=== PATIENT | male | born 1960 | race Two or more races ===

== ENCOUNTER → 2020-10-16 10:42 | Outpatient (BNVA) | payer MEDICAID, SELFPAY | PROVIDERS: PCP Nurse Practitioner Family; Referring Provider Nurse Practitioner Family; Visit Provider Surgery | DX: Z12.11 Encounter for screening for malignant neoplasm of colon (principal) | CPT/HCPCS: 99202 ==

== ENCOUNTER 2020-12-01 06:28 | Day surgery (SDC) | payer MEDICAID, SELFPAY ==
[2020-11-27 09:43] VITALS: BMI 30.8
[2020-11-30 08:06] VITALS: BMI 30.8
--- NOTE | 2020-11-30 10:27 | P.CONAN_ITS ---
Documented by User: Kacy Hernandez 11/30/20 10:33 HPI - Anesthesia Eval Consult details Narrative: 60yo M for Colonoscopy PMFSH Past Medical History Medical History Asthma Colon cancer screening Hyperlipidemia TIA (transient ischemic attack) Family History Family History Mother History of diabetes mellitus Brother History of diabetes mellitus Father History of myocardial infarction Surgical History Surgical History History of ankle surgery (2008) History of cholecystectomy (1997) History of colonoscopy (~2008) History of prostate surgery Social History Social History Alcohol intake: current Alcohol intake frequency: holidays/special occasions only Alcohol type: beer Smoking Status: Never smoker Second Hand Smoke Exposure: No Use of substances other than those prescribed or required for medical reasons: No Substance Use Type: IV Drugs Last Used Substance: Unknown Advance Directives: No Advance Directives Information Provided: No Advance Directives on File: No Meds Allergies Allergy/AdvReac Type Severity Reaction Status Date / Time simvastatin Allergy Mild elevated Verified 12/01/20 06:42 CPK Home Medications Medication Instructions Recorded Confirmed Type acetaminophen 500 mg capsule 1,000 mg PO TID PRN cap 10/16/20 History albuterol sulfate 2.5 mg INHALATION Q4-6H PRN 10/16/20 History albuterol sulfate 90 mcg/actuation 2 puff INHALATION Q6H PRN 10/16/20 History aerosol inhaler amlodipine 10 mg tablet 10 mg PO DAILY 10/16/20 History aspirin 325 mg tablet,delayed 325 mg PO DAILY 10/16/20 History release atorvastatin 80 mg tablet 80 mg PO BEDTIME 10/16/20 History blood pressure test kit medium and #1 ea 10/16/20 History large cuffs calcium carbonate 300 mg (750 mg) 300 mg PO BID 10/16/20 History chewable tablet cholecalciferol (vitamin D3) 50 50 mcg PO DAILY 10/16/20 History mcg (2,000 unit) capsule cyclobenzaprine 5 mg tablet 5 mg PO TID PRN 10/16/20 History fluticasone 250 mcg-salmeterol 50 1 inh INHALATION BID 10/16/20 History mcg/dose blistr powdr for inhalation ibuprofen 800 mg tablet 800 mg PO TID 10/16/20 History loratadine 10 mg tablet 10 mg PO DAILY 10/16/20 History mecobalamin (vitamin B12) 1,000 1,000 mcg SUBLINGUAL DAILY 10/16/20 History mcg disintegrating tablet,sublingual quetiapine 100 mg tablet 100 mg PO BEDTIME 10/16/20 History sennosides 8.6 mg tablet 8.6 mg PO DAILY 10/16/20 History varicella-zoster glycoE vacc-AS01B IM 10/16/20 History adj(PF) 50 mcg/0.5 mL IM susp, kit venlafaxine 75 mg capsule,extended 75 mg PO DAILY 10/16/20 History release 24 hr zaleplon 10 mg capsule 10 mg PO BEDTIME PRN 10/16/20 History Exam Exam Date and Time: November 30, 2020 1027 Height,Weight and Vital Signs: Height 5 ft 3 in Weight 79 kg Narrative Narrative: EKG 01/2020 NSR Assessment and Plan Assessment Anesthesia Assessment: Chart Reviewed Documented by User: Leelee Abdi 12/01/20 07:21 [facility] Past Medical History Medical History Asthma Colon cancer screening Hyperlipidemia TIA (transient ischemic attack) Family History Family History Mother History of diabetes mellitus Brother History of diabetes mellitus Father History of myocardial infarction Surgical History Surgical History History of ankle surgery (2008) History of cholecystectomy (1997) History of colonoscopy (~2008) History of prostate surgery Social History Social History Alcohol intake: current Alcohol intake frequency: holidays/special occasions only Alcohol type: beer Smoking Status: Never smoker Second Hand Smoke Exposure: No Use of substances other than those prescribed or required for medical reasons: No Substance Use Type: IV Drugs Last Used Substance: Unknown Advance Directives: No Advance Directives Information Provided: No Advance Directives on File: No Meds Allergies Allergy/AdvReac Type Severity Reaction Status Date / Time simvastatin Allergy Mild elevated Verified 12/01/20 06:42 CPK Home Medications Medication Instructions Recorded Confirmed Type acetaminophen 500 mg capsule 1,000 mg PO TID PRN cap 10/16/20 History albuterol sulfate 2.5 mg INHALATION Q4-6H PRN 10/16/20 History albuterol sulfate 90 mcg/actuation 2 puff INHALATION Q6H PRN 10/16/20 History aerosol inhaler amlodipine 10 mg tablet 10 mg PO DAILY 10/16/20 History aspirin 325 mg tablet,delayed 325 mg PO DAILY 10/16/20 History release atorvastatin 80 mg tablet 80 mg PO BEDTIME 10/16/20 History blood pressure test kit medium and #1 ea 10/16/20 History large cuffs calcium carbonate 300 mg (750 mg) 300 mg PO BID 10/16/20 History chewable tablet cholecalciferol (vitamin D3) 50 50 mcg PO DAILY 10/16/20 History mcg (2,000 unit) capsule cyclobenzaprine 5 mg tablet 5 mg PO TID PRN 10/16/20 History fluticasone 250 mcg-salmeterol 50 1 inh INHALATION BID 10/16/20 History mcg/dose blistr powdr for inhalation ibuprofen 800 mg tablet 800 mg PO TID 10/16/20 History loratadine 10 mg tablet 10 mg PO DAILY 10/16/20 History mecobalamin (vitamin B12) 1,000 1,000 mcg SUBLINGUAL DAILY 10/16/20 History mcg disintegrating tablet,sublingual quetiapine 100 mg tablet 100 mg PO BEDTIME 10/16/20 History sennosides 8.6 mg tablet 8.6 mg PO DAILY 10/16/20 History varicella-zoster glycoE vacc-AS01B IM 10/16/20 History adj(PF) 50 mcg/0.5 mL IM susp, kit venlafaxine 75 mg capsule,extended 75 mg PO DAILY 10/16/20 History release 24 hr zaleplon 10 mg capsule 10 mg PO BEDTIME PRN 10/16/20 History Exam Airway Mallampati Class: II TM Dist: >3cm Neck ROM: Full Heart: RRR Lungs: CTa
[2020-12-01 06:48] VITALS: BP 137/78; PULSE 754; RESP 16; TEMP 36.6; O2SAT 96
[2020-12-01] MEDS: Lactated Ringers 1,000 ML 100 ML IVCONT (07:03)
--- NOTE | 2020-12-01 07:19 | MHC.SHP ---
Pre-Procedural Eval Section B Chief Complaint: screening Details of Present Illness: for screening colonoscopy Relevant Family History (Specify if Yes): No Relevant Social History: None Present Medications: see Short Stay Collaborative assessment Medical History: No relevant PMH History of Previous Operations: No relevant previous surgery Allergies: Allergies Allergy/AdvReac Type Severity Reaction Status Date / Time simvastatin Allergy Mild elevated Verified 12/01/20 06:42 CPK Review of Systems Sugical H&P ROS: Negative: Constitution, Cardiovascular, Respiratory, Neurological, Psychiatric, Hem-Onc, Allergic/Immunologic, Gastrointestinal, Genitourinary, Musculoskeletal, Integumentary, Endocrine and Eyes/Ears/Nose/Throat Exam Surgical H&P Exam: Normal: HEENT, Normal: Heart, Normal: Lungs, Normal: Extremities, Normal: Abdomen, Normal: Skin and Normal: Neurological Plan Diagnosis/Plan: Unchanged I have reviewed the history and physical and performed a pertinent physical examination on my patient. No changes have occurred unless specified.
--- NOTE | 2020-12-01 08:04 | PM.OP ---
Brief Operative Note Date of Service: 12/01/20 Pre-op diagnosis: colon ca screen Post-op diagnosis: other (diverticulosis, hemorrhoids) Procedure: colonoscopy Surgeon: Mehul Lovett MD Anesthesia: MAC Estimated blood loss (mL): 0 Pathology: none sent Condition: stable Disposition: PACU
[2020-12-01 08:05] VITALS: BP 109/63; PULSE 82; RESP 16; TEMP 36.7; O2SAT 95
--- NOTE | 2020-12-01 08:08 | HO.POSTANES ---
Post Anesthesia Evaluation Post Anesthesia Evaluation Vital Signs: Vital Signs Temp Pulse Resp BP Pulse Ox 12/01/20 08:05 98.0 F 82 16 109/63 95 12/01/20 06:48 97.9 F 754 H 16 137/78 96 Anesthesia: Monitored Mental Status: Awake Pain Control: Satisfactory Nausea/Vomiting: None Hydration: Adequate Anesthesia-Related Issues: No Anes. Related Issues
[2020-12-01 08:20] VITALS: BP 122/83; PULSE 76; RESP 17; TEMP 36.7; O2SAT 95
--- NOTE | 2020-12-01 08:27 | OP_ITS ---
SURGEON: Mehul Lovett MD INDICATIONS: The patient is a 60-year-old male, who is referred for screening colonoscopy. He understood the technique of the procedure. He was aware of the risks, benefits, and alternatives. PREOPERATIVE DIAGNOSIS: Colon cancer screening. POSTOPERATIVE DIAGNOSIS: Normal colonoscopy findings PROCEDURE PERFORMED: Screening colonoscopy. ESTIMATED BLOOD LOSS: COMPLICATIONS: ANESTHESIA: ASSISTANTS: SPECIMENS: POSTOPERATIVE DIAGNOSES: 1. Diverticulosis, mostly in the sigmoid. 2. Internal and external hemorrhoids. DESCRIPTION OF PROCEDURE: He was brought to the operating room and placed in left lateral decubitus position under monitored anesthesia care. A full digital rectal exam was done. There were no palpable anal canal lesions, except for hemorrhoids. The tip of the Olympus colonoscope was introduced gently through the anal orifice and advanced with insufflation all the way to the cecum. The cecum was intubated. The cecum was identified by visualization of the cecal valve as well as the appendiceal orifice and transillumination. The cecal mucosa was unremarkable. The scope was gradually withdrawn with careful examination of the entire colonic mucosa being done with scope withdrawal. The patient did have some segments with pools of thin-watered stools, so I had to irrigate and suction, but we were able to achieve good visualization of the colonic mucosa. It was unlikely that any lesion might have been missed. We proceeded to continue to withdraw the scope with careful examination and there was note of diverticulosis of the sigmoid, [id number]. The rectum was reached and there were no lesions seen. The anal canal was unremarkable except for internal and external hemorrhoids and the scope was then withdrawn completely. The patient tolerated the procedure well and there were no complications noted. His next colonoscopy may be in the next 10 years. MD BYRON Jewell/TIMOTHY / [id number] MTDD
--- NOTE | 2020-12-01 08:53 | HO.POSTANES ---
Post Anesthesia Evaluation Post Anesthesia Evaluation Vital Signs: Vital Signs Temp Pulse Resp BP Pulse Ox 12/01/20 08:20 98.0 F 76 17 122/83 95 12/01/20 08:05 98.0 F 82 16 109/63 95 12/01/20 06:48 97.9 F 754 H 16 137/78 96 Anesthesia: Monitored Mental Status: Awake Pain Control: Satisfactory Nausea/Vomiting: None Hydration: Adequate Anesthesia-Related Issues: No Anes. Related Issues
== END 2020-12-01 08:47 ==
LOC: HO.SSS 06:28
PROVIDERS: PCP Nurse Practitioner Family; Visit Provider Surgery
PROC: 0DJD8ZZ Inspection of Lower Intestinal Tract, Via Natural or Artificial Opening Endoscopic (ICD-10-PCS; CPT 45378; principal; 2020-12-01 07:30)
DX: Z12.11 Encounter for screening for malignant neoplasm of colon (principal); K57.30 Diverticulosis of large intestine without perforation or abscess without bleeding; K64.8 Other hemorrhoids; K64.4 Residual hemorrhoidal skin tags; K59.00 Constipation, unspecified; E87.4 Mixed disorder of acid-base balance; Z86.73 Personal history of transient ischemic attack (TIA), and cerebral infarction without residual deficits; Z90.49 Acquired absence of other specified parts of digestive tract
CPT/HCPCS: 45378

== ENCOUNTER → 2020-12-28 14:36 | Outpatient (BNVA) | payer MEDICAID, SELFPAY | PROVIDERS: PCP Nurse Practitioner Family; Visit Provider Surgery | DX: Z12.11 Encounter for screening for malignant neoplasm of colon (principal) | CPT/HCPCS: 99212 ==

== ENCOUNTER → 2021-02-01 10:56 | Outpatient (BNVA) | payer MEDICAID, SELFPAY | PROVIDERS: PCP Nurse Practitioner; Visit Provider Urology | DX: N48.6 Induration penis plastica (principal) | CPT/HCPCS: 99202 ==

== ENCOUNTER 2023-03-14 10:37 | Outpatient (REF) | payer MEDICAID, SELFPAY ==
--- NOTE | ~2023-03-14 | XR_ITS ---
EXAMINATION: XR ANKLE, LEFT CLINICAL INFORMATION: Left ankle pain. COMPARISON: None available. TECHNIQUE: AP, lateral, and mortise views of the left ankle. FINDINGS: The patient is status post left ankle ORIF with an intramedullary nail transfixing the tibiotalar and subtalar joints with associated effusion. Overall good anatomic alignment without overt acute fracture. The soft tissues are unremarkable. XR/XR ankle LT min 3V IMPRESSION: 1. Overall good anatomic alignment without overt acute fracture. 2. No overt hardware abnormality.
== END 2023-03-14 10:38 | disposition home or self-care (01) ==
LOC: HO.HHCX 10:37
PROVIDERS: Referring Provider Nurse Practitioner Primary Care; Visit Provider Nurse Practitioner Primary Care
DX: M25.572 Pain in left ankle and joints of left foot (principal)
CPT/HCPCS: 73610

== ENCOUNTER 2023-07-02 18:57 | Outpatient (REF) | payer MEDICAID, SELFPAY ==
[2023-07-03 06:28] LABS: CT PCR NOT DETECTED (Not Detect.); NG PCR NOT DETECTED (Not Detect.)
== END 2023-07-02 18:58 | disposition home or self-care (01) ==
LOC: HO.HHCL 18:57
PROVIDERS: Visit Provider Internal Medicine
DX: R30.0 Dysuria (principal); N34.2 Other urethritis
CPT/HCPCS: 0353U; 87086; 87088; 87186

== ENCOUNTER 2023-07-17 17:35 | Outpatient (REF) | payer MEDICAID, SELFPAY ==
[2023-07-17 18:00] LABS: Appearance Urine Turbid; Color Urine Yellow; Glucose Urine UA Negative (Negative); Leukocyte Esterase Urine Large (3+) (Negative); Nitrite Urine Positive (Negative); PH 6.5 (5.0-9.0); UMIC TRIGGER UACC YES; Urine Blood Moderate (2+) (Negative); Urine Ketones Trace mg/dL (Negative); Urine Protein 30 (1+) mg/dL (Neg-Trace)
[2023-07-17 18:14] LABS: Bacteria Urine 4+ (None Seen); UACC Culture Trigger YES; WBC Urine >50 /HPF (0-5)
== END 2023-07-17 17:36 | disposition home or self-care (01) ==
LOC: HO.HHCLNP 17:35
PROVIDERS: Visit Provider Family Medicine
DX: R30.0 Dysuria (principal)
CPT/HCPCS: 81001; 87086; 87088; 87186

== ENCOUNTER 2024-02-26 07:22 | Emergency (ER) | payer MEDICAID, SELFPAY ==
--- NOTE | 2024-02-26 | ECG_ITS ---
Test Reason : SOB Blood Pressure : / mmHG Vent. Rate : 095 BPM Atrial Rate : 095 BPM P-R Int : 134 ms QRS Dur : 084 ms QT Int : 346 ms P-R-T Axes : 034 013 075 degrees QTc Int : 434 ms Normal sinus rhythm Normal ECG When compared with ECG of 28-JAN-2020 22:25, No significant change was found Referred By: Generic ED Physician Electronically Signed By:RAJESH BRAUN
--- NOTE | ~2024-02-26 | XR_ITS ---
EXAMINATION: XR CHEST CLINICAL INFORMATION: Dyspnea COMPARISON: 01/28/2020 TECHNIQUE: Frontal view of the chest was obtained. FINDINGS: No significant abnormality is noted involving the heart, lungs, mediastinum, bony thorax or soft tissues. XR/XR chest 1V IMPRESSION: Unremarkable examination.
[2024-02-26 07:23] VITALS: BP 140/76; PULSE 92; RESP 18; TEMP 37.2; O2SAT 95; BMI 32.3
[2024-02-26] MEDS: Albuterol Sulfate 90 MCG 8 GM INHALER 8 PUFF INHALE (07:48)
[2024-02-26 07:54] VITALS: PULSE 97; RESP 20; O2SAT 95
--- NOTE | 2024-02-26 08:01 | ED_ITS ---
HPI - Asthma General Chief Complaint: Dyspnea Stated Complaint: diff breathing couthing Time Seen by Provider: 02/26/24 07:52 Source: patient, family and old records reviewed Mode of arrival: ambulatory Limitations: no limitations History of Present Illness HPI Narrative: 63 yo male with PMH of TIA, HLD, asthma, HTN here with c/o flu exposure from multiple family members has been sick x 2 days with cough, wheezing, fevers and nausea. Using his INH with no relief. MD complaint: asthma attack , shortness of breath and wheezing Onset (ago): day(s) (2) Severity: moderate Context: recent URI Associated symptoms: dry cough and fever Asthma History: childhood onset Treatments Prior to Arrival: inhaled bronchodilator Related Data Home Medications ?Medication ?Instructions ?Recorded ?Confirmed acetaminophen 500 mg capsule 1,000 mg PO TID PRN 10/16/20 07/21/21 albuterol sulfate 2.5 mg/3 mL 2.5 mg inhalation Q4-6H PRN 10/16/20 07/21/21 (0.083 %) solution for nebulization albuterol sulfate 90 mcg/actuation 2 puff inhalation Q6H PRN 10/16/20 07/21/21 aerosol inhaler (ProAir HFA) amlodipine 10 mg tablet 10 mg PO DAILY 10/16/20 07/21/21 aspirin 325 mg tablet,delayed 325 mg PO DAILY 10/16/20 07/21/21 release atorvastatin 80 mg tablet 80 mg PO BEDTIME 10/16/20 07/21/21 blood pressure test kit medium and #1 ea 10/16/20 07/21/21 large cuffs calcium carbonate 300 mg (750 mg) 300 mg PO BID 10/16/20 07/21/21 chewable tablet (Tums) cholecalciferol (vitamin D3) 50 50 mcg PO DAILY 10/16/20 07/21/21 mcg (2,000 unit) capsule cyclobenzaprine 5 mg tablet 5 mg PO TID PRN 10/16/20 07/21/21 fluticasone 250 mcg-salmeterol 50 1 inh inhalation BID 10/16/20 07/21/21 mcg/dose blistr powdr for inhalation (Advair Diskus) ibuprofen 800 mg tablet 800 mg PO TID 10/16/20 07/21/21 loratadine 10 mg tablet 10 mg PO DAILY 10/16/20 07/21/21 mecobalamin (vitamin B12) 1,000 1,000 mcg sublingual DAILY 10/16/20 07/21/21 mcg disintegrating tablet,sublingual quetiapine 100 mg tablet (Seroquel) 100 mg PO BEDTIME 10/16/20 07/21/21 sennosides 8.6 mg tablet (senna) 8.6 mg PO DAILY 10/16/20 07/21/21 varicella-zoster glycoE vacc-AS01B IM 10/16/20 07/21/21 adj(PF) 50 mcg/0.5 mL IM susp, kit (Shingrix (PF)) venlafaxine 75 mg capsule,extended 75 mg PO DAILY 10/16/20 07/21/21 release 24 hr zaleplon 10 mg capsule 10 mg PO BEDTIME PRN 10/16/20 07/21/21 Previous Rx's ?Medication ?Instructions ?Recorded sodium,potassium,mag sulfates 17.5 See Rx Instructions PO .COMPLEX 10/16/20 gram-3.13 gram-1.6 gram oral soln PLEASE SUBSTITUTE WITH FORMULARY (Suprep Bowel Prep Kit) PRODUCT #354 mL peg 3350-electrolytes 227.1 240 ml PO Q10M for bowel prep #1 ea 11/28/20 gram-21.5 gram-6.36gram oral powder packet (Golytely) tadalafil 10 mg tablet 10 mg PO DAILY PRN sexual activity 02/01/21 90 days #90 tabs amoxicillin 500 mg capsule 500 mg PO Q12H 7 days #14 caps 07/21/21 ondansetron 4 mg disintegrating 4 mg PO Q8H PRN nausea and 02/26/24 tablet vomiting #20 tabs oseltamivir 75 mg capsule (Tamiflu) 75 mg PO BID 5 days #10 caps 02/26/24 prednisone 20 mg tablet 40 mg (2 x 20 mg) PO DAILY 5 days 02/26/24 #10 tabs Allergies Allergy/AdvReac Type Severity Reaction Status Date / Time simvastatin Allergy Mild elevated Verified 02/26/24 07:31 CPK Review of Systems 2 Review of Systems: Constitutional : pos Fever, pos Chills ENT/Mouth : No Hoarseness, No sore throat, No Rhinorrhea Eyes: No Redness, No Discharge, No Vision Changes Cardiovascular : No Chest Pain, positive SOB, positive Dyspnea on Exertion, No Edema Respiratory : positive Cough, No Sputum, positive Wheezing, Gastrointestinal : pos Nausea, No Vomiting, No Diarrhea, No abdominal Pain Genitourinary : No Dysuria, No Hematuria Musculoskeletal : No joint pain, No Myalgias Skin : No rash Neuro : No Weakness, No Numbness, No Headache Psych : No anxiety, depression All other systems reviewed and are negative PMFSH Past Medical History Attestation statement: The following information was validated with the patient. Source: old records reviewed Medical History TIA (transient ischemic attack) Asthma Colon cancer screening Hyperlipidemia Surgical History History of prostate surgery History of colonoscopy (~2008) History of ankle surgery (2008) History of cholecystectomy (1997) Family History Family History Mother History of diabetes mellitus Brother History of diabetes mellitus Father History of myocardial infarction Social History Social History Alcohol intake: current Alcohol intake frequency: holidays/special occasions only Alcohol type: beer Second Hand Smoke Exposure: No Substance Use Type: IV Drugs Advance Directives: No Advance Directives Information Provided: Yes Physical Exam 2 Vital Signs: Vital Signs: Last Vital Signs Temp 98.6 F 02/26/24 08:31 Pulse 96 02/26/24 08:31 Resp 20 02/26/24 08:31 BP 145/75 H 02/26/24 08:31 Pulse Ox 92 02/26/24 08:31 O2 Del Method Room Air 02/26/24 08:31 BMI result Body Mass Index 32.3 Appearance: Alert. Oriented X3. No acute distress. Eyes: Pupils equal, round and reactive to light. ENT: Pharynx normal. Neck: Normal inspection. Neck supple. CVS: Normal heart rate and rhythm. Pulses normal. Respiratory: No respiratory distress. Breath sounds diminished with mild exp wheezes Abdomen: Soft and nontender. Skin: Skin warm and dry. Normal skin color. Normal skin turgor. Extremities: No lower extremity edema. No calf ttp Neuro: Oriented X 3. No motor deficit. No sensory deficit. Medications Administered Discontinued Medications Generic Name Dose Route Start Last Admin Trade Name Audelia PRN Reason Stop Dose Admin Albuterol Sulfate 8 puff 02/26/24 07:45 02/26/24 07:48 Albuterol Sulfate 90 Mcg 8 Gm Inhaler INHALE 02/26/24 07:46 8 puff ONCE ONE Administration Sodium Chloride 1,000 mls @ 999 mls/hr 02/26/24 08:15 02/26/24 09:44 Ns IV 02/26/24 09:15 Infused .Q1H1M GREG Infusion Methylprednisolone Sodium Succinate 60 mg 02/26/24 08:02 02/26/24 08:50 Methylprednisolone Sod Succ 125 Mg/2 Ml Vial IVPUSH 02/26/24 08:03 60 mg ONCE ONE Administration Ondansetron HCl 4 mg 02/26/24 08:02 02/26/24 08:50 Ondansetron Hcl 4 Mg/2 Ml Vial IVPUSH 02/26/24 08:03 4 mg ONCE ONE Administration Medical Decision Making Medical Decision Making [facility] Narrative: 63 yo male with PMH of TIA, HLD, asthma, HTN here with c/o flu exposure now sick with fevers, nausea, wheezing for 2 days at this time will need labs, bronch protocol, IV fluids, zofran he is in window for tamiflu. I am obtaining CXR as well. He is not hypoxic on arrival. Differential Diagnosis Differential Diagnoses: The differential diagnosis associated with the presentation includes asthma, flu exacerbation Admission/Observation Consideration of admission/observation: Escalation of care including admission/observation considered VS stable, lungs clear feels much better at this time stable for DC 95% on RA Lab Data [facility] Lab Attestation statement: I reviewed the patient's lab results. 02/26/24 08:23 02/26/24 08:39 Labs: Lab Results 02/26/24 02/26/24 Range/Units 08:23 08:39 WBC 7.1 (4.8-10.8) X10*3/uL RBC 3.88 L (4.60-5.80) X10*6/uL Hgb 11.9 L (14.0-18.0) g/dl Hct 36.0 L (42.0-52.0) % MCV 92.8 (80.0-98.0) fL MCH 30.7 (27.0-33.0) pg MCHC 33.1 (31.0-36.0) g/dl RDW 14.0 (11.0-16.0) % Plt Count 273 (160-400) X10*3/uL MPV 9.9 (9.4-12.4) fL Immature Gran % (Auto) 0.3 (0.0-0.4) % Neut % (Auto) 71.0 (45-73) % Lymph % (Auto) 14.0 L (20-40) % [place] % (Auto) 12.8 H (2-11) % Eos % (Auto) 1.6 (0-4) % Baso % (Auto) 0.3 (0-2) % Lymph # (Auto) 1.0 L (1.2-4.9) X10*3/uL [place] # (Auto) 0.9 (0.1-1.2) X10*3/uL Eos # (Auto) 0.1 (0.0-0.4) X10*3/uL Baso # (Auto) 0.0 (0.0-0.2) X10*3/uL Abs Immat Gran (auto) 0.02 (0.00-0.03) X10*3/uL Absolute Neuts (auto) 5.0 (2.0-8.3) x10*3/uL Absolute Nucleated RBC 0.000 (0.0-0.012) X10*3/uL Nucleated RBC % (auto) 0.0 (0.0-0.2) /100WBC Smear Tech's Comments VERIFIED Sodium 139 (135-145) mmol/L Potassium 4.1 (3.3-5.1) mmol/L Chloride 106 (96-108) mmol/L Carbon Dioxide 25 (22-29) mmol/L Anion Gap 12 (12-20) BUN 14 (9-16) mg/dL Creatinine 1.05 (0.5-1.4) mg/dL Estim Creat Clear Calc 74.9 Estimated GFR > 60 Random Glucose 112 (60-115) mg/dL Calcium 9.1 (8.4-10.2) mg/dL Magnesium 2.2 (1.6-2.6) mg/dL Total Bilirubin 0.4 (0.0-1.0) mg/dL AST 43 H (5-37) U/L ALT 35 (0-40) U/L Alkaline Phosphatase 102 (39-117) U/L Total Protein 8.1 H (6.5-8.0) g/dL Albumin 4.3 (3.5-5.0) g/dL Influenza Type A (PCR) POSITIVE A (Negative) Influenza Type B (PCR) NEGATIVE (Negative) RSV RNA Qual (PCR) NEGATIVE (Negative) SARS-CoV-2 RNA (RT-PCR) NEGATIVE (Negative) Independent Interpretation I performed an independent interpretation of an: EKG and Plain X-Ray (no pneumonia) Interpretation: Rate: 95 Rhythm: NSR [place]: normal Normal P waves. Normal RADU. Normal QRS complex. ST T wave : normal no GWEN qTC: 434 prior studies: no acute ischemia The study has been interpreted contemporaneously by me. . Radiology Impression Discussion of test interpretation with radiology: I have reviewed the radiologist's reading. Independent Historian Clinical information obtained from an independent historian. History obtained from or confirmed by: Spouse External Record Review External record reviewed: Inpatient record Prescription Management I considered prescription management with: Antiviral and Other Discharge Plan Discharge Clinical Impression: Influenza A Asthma with exacerbation Qualifiers: Asthma severity: moderate Asthma persistence: persistent Qualified Code(s): J 45.41 - Moderate persistent asthma with (acute) exacerbation Patient Disposition: Home, Self-Care Instructions: Asthma (ED), Influenza (ED) Additional Instructions: return for worsening symptoms and concerns take the medications as prescribed. return for fevers, vomiting, inability to eat or drink or worsening breathing Prescriptions: New oseltamivir [Tamiflu] 75 mg capsule 75 mg PO BID 5 Days Qty: 10 0RF ondansetron 4 mg tablet,disintegrating 4 mg PO Q8H PRN (Reason: nausea and vomiting) Qty: 20 0RF prednisone 20 mg tablet 40 mg PO DAILY 5 Days Qty: 10 0RF No Action Golytely 227.1-21.5-6.36 gram powder in packet 240 ml PO Q10M Qty: 1 0RF Rx Instructions: Begin drinking 1 8oz glass every 10 minutes until fecal effluent is clear; do not exceed a total volume [id number] mL amoxicillin 500 mg capsule 500 mg PO Q12H 7 Days Qty: 14 0RF venlafaxine 75 mg capsule,extended release 24hr 75 mg PO DAILY zaleplon 10 mg capsule 10 mg PO BEDTIME PRN Rx Instructions: must avoid high-fat meal/food immediately before taking dose acetaminophen 500 mg capsule 1,000 mg PO TID PRN albuterol sulfate 2.5 mg /3 mL (0.083 %) solution for nebulization 2.5 mg inhalation Q4-6H PRN quetiapine [Seroquel] 100 mg tablet 100 mg PO BEDTIME fluticasone propion-salmeterol [Advair Diskus] 250-50 mcg/dose blister with device 1 inh inhalation BID Shingrix (PF) 50 mcg/0.5 mL suspension for reconstitution IM sennosides [senna] 8.6 mg tablet 8.6 mg PO DAILY atorvastatin 80 mg tablet 80 mg PO BEDTIME aspirin 325 mg tablet,delayed release (DR/EC) 325 mg PO DAILY mecobalamin (vitamin B12) 1,000 mcg tablet,disintegrating 1,000 mcg sublingual DAILY Rx Instructions: place tablet under tongue and allow to dissolve for at least30 secs before swallowing cholecalciferol (vitamin D3) 50 mcg (2,000 unit) capsule 50 mcg PO DAILY loratadine 10 mg tablet 10 mg PO DAILY calcium carbonate [Tums] 300 mg (750 mg) tablet,chewable 300 mg PO BID (DME) blood pressure kit med and lrg Kit See Rx Instructions .ROUTE .MEDSUPPLY Qty: 1 Rx Instructions: As directed ibuprofen 800 mg tablet 800 mg PO TID amlodipine 10 mg tablet 10 mg PO DAILY albuterol sulfate [ProAir HFA] 90 mcg/actuation HFA aerosol inhaler 2 puff inhalation Q6H PRN cyclobenzaprine 5 mg tablet 5 mg PO TID PRN Suprep Bowel Prep Kit 17.5-3.13-1.6 gram recon soln See Rx Instructions PO .COMPLEX Qty: 354 0RF Rx Instructions: DILUTE; drink full amount early evening before AND next morning at least 2 hr before procedure; follow w 32 oz. water PO tadalafil 10 mg tablet 10 mg PO DAILY PRN (Reason: sexual activity) 90 Days Qty: 90 0RF Print Language: Eritrean
[2024-02-26 08:31] VITALS: BP 145/75; PULSE 96; RESP 20; TEMP 37; O2SAT 92
[2024-02-26 08:31] LABS: Basophils Percent Auto 0.3 % (0-2); Eosinophils Absolute Auto 0.1 X10*3/uL (0.0-0.4); Eosinophils Percent Auto 1.6 % (0-4); Hemoglobin 11.9 g/dl (14.0-18.0); Imm Gran Abs Auto 0.02 X10*3/uL (0.00-0.03); Imm Gran Pct Auto 0.3 % (0.0-0.4); MANUAL DIFF FLAG SCAN; Mean Corpuscular HGB Conc 33.1 g/dl (31.0-36.0); Mean Corpuscular Hemoglobin 30.7 pg (27.0-33.0); Mean Corpuscular Volume 92.8 fL (80.0-98.0); Monocytes Absolute Auto 0.9 X10*3/uL (0.1-1.2); Monocytes Percent Auto 12.8 % (2-11); PLT CLUMP 1; Red Blood Count 3.88 X10*6/uL (4.60-5.80); SCAN SMEAR FLAG 1
[2024-02-26 08:34] LABS: White Blood Count 7.1 X10*3/uL (4.8-10.8)
[2024-02-26] MEDS: 0.9 % Sodium Chloride 1,000 ML 999 ML IV (08:48)
[2024-02-26] MEDS: ondansetron HCL 4 MG/2 ML VIAL IVPUSH (08:50)
[2024-02-26] MEDS: methylPREDNISolone Sod Succ 125 MG/2 ML VIAL 60 MG IVPUSH (08:50)
[2024-02-26 09:02] LABS: Alanine Aminotransferase 35 U/L (0-40); Albumin Level 4.3 g/dL (3.5-5.0); Alkaline Phosphatase 102 U/L (39-117); Anion Gap 12 (12-20); Aspartate Amino Transferase 43 U/L (5-37); Bilirubin Total 0.4 mg/dL (0.0-1.0); Blood Urea Nitrogen 14 mg/dL (9-16); Calcium 9.1 mg/dL (8.4-10.2); Carbon Dioxide 25 mmol/L (22-29); Chloride 106 mmol/L (96-108); Creatinine Clr Calc Pharmacy 74.9; Estimated Glomerular Filt Rate > 60; Glucose Random 112 mg/dL (60-115); Magnesium 2.2 mg/dL (1.6-2.6); Potassium 4.1 mmol/L (3.3-5.1); Sodium 139 mmol/L (135-145); Total Protein 8.1 g/dL (6.5-8.0)
[2024-02-26 09:25] LABS: Mean Platelet Volume 9.9 fL (9.4-12.4); Platelet Count 273 X10*3/uL (160-400); SLIDE REVIEW VERIFIED
[2024-02-26 09:26] LABS: Influenza A PCR POSITIVE (Negative); Influenza B PCR NEGATIVE (Negative); Resp Syncy Virus RNA Qual PCR NEGATIVE (Negative); SARS COV2 PCR INHOUSE NEGATIVE (Negative)
[2024-02-26 11:03] VITALS: BP 121/76; PULSE 78; RESP 14; TEMP 36.6; O2SAT 95
== END 2024-02-26 11:04 | disposition home or self-care (01) ==
PROVIDERS: Emergency Provider Emergency Medicine; PCP Nurse Practitioner
DX: J45.41 Moderate persistent asthma with (acute) exacerbation (principal); J10.1 Influenza due to other identified influenza virus with other respiratory manifestations; I10 Essential (primary) hypertension; Z86.73 Personal history of transient ischemic attack (TIA), and cerebral infarction without residual deficits
CPT/HCPCS: 0241U; 36415; 71045; 80053; 83735; 85025; 93005; 94640; 96361; 96374; 96375; 99284; J2405; J2919

== ENCOUNTER → 2024-02-26 08:22 | Outpatient (BNV) | payer MEDICAID, SELFPAY | PROVIDERS: Emergency Provider Emergency Medicine; PCP Nurse Practitioner; Visit Provider Internal Medicine | DX: R06.02 Shortness of breath (principal) | CPT/HCPCS: 93010 ==

== ENCOUNTER 2024-04-30 15:04 | Outpatient (AMB) | payer MEDICAID, SELFPAY ==
--- NOTE | 2024-04-30 15:07 | A.OFFVIS_ITS ---
Intake Visit Reasons: Dysuria/Recurrent UTI Intake Note: Pt presents to the office today for dysuria/Reccurent UTI Urology Meds: Tadalafil Blood Thinner: Aspirin Allergies simvastatin Allergy (Mild, Verified 04/30/24 15:07) elevated CPK HPI Comments Details: Zane is a pleasant male. He is a patient of Dr. Hanna. He has seen for the following urologic conditions - erectile dysfunction - Peyronie's disease Discussed penile prosthetic Printed information provided He will call if wishes to move ahead Peyronie's disease Longstanding No pain Right ventral plaque on exam Has interest in penile prosthetic Failed daily Cialis Would also need to use penile vacuum pump for 3 months prior to prosthetic placement in order to maximize size PFSH Medical History TIA (transient ischemic attack) Asthma Colon cancer screening Hyperlipidemia Surgical History History of prostate surgery History of colonoscopy (~2008) History of ankle surgery (2008) History of cholecystectomy (1997) Family History Mother History of diabetes mellitus Brother History of diabetes mellitus Father History of myocardial infarction Social History Alcohol intake: current Alcohol intake frequency: holidays/special occasions only Alcohol type: beer Second Hand Smoke Exposure: No Substance Use Type: IV Drugs Review of Systems Const Denies chills and Denies fever(s) Card Reports no additional complaints and Denies syncope Resp Denies cough GI Denies abdominal pain and Denies heartburn Reports as per HPI and Denies change in libido Neuro Denies syncope Psych Denies change in libido Endo Denies change in libido Physical Exam Const General: cooperative, healthy appearing, comfortable and no acute distress Orientation/consciousness: patient oriented x3 HEENT Face and sinus: Yes normal facial exam Mouth: moist mucous membranes Neck Neck: Yes normal visual inspection, Yes full ROM and Yes trachea midline Chest Chest palpation & inspection: normal inspection of the chest Resp Effort & Inspection: normal respiratory effort, able to speak in complete sentences and no respiratory distress GI Inspection: Yes normal to inspection Back/Spine/Pelvis Cervical Spine: normal cervical lordosis Thoracic/Lumbar Spine: thoracic and lumbar spine normal to inspection Skin General skin exam: no rashes or lesions noted Neuro General: patient oriented x3, gait normal, tone normal and moves all extremities Extrem General: Yes normal to inspection and Yes capillary refill normal Office Procedures Post Void Residual Post Residual Void Post Void Residual (PVR): 51 [id number] Void Residual by ultrasound Results AMB Urinalysis, Automated UA Leukoctes 0 Isabel/uL Last Edit by Priti Kwok CMA on 04/30/24 15:19 UA Nitrite Negative Last Edit by Priti Kwok CMA on 04/30/24 15:19 UA Urobilinogen 0.2 mg/dL Last Edit by Priti Kwok CMA on 04/30/24 15:19 UA Protein 15 mg/dL Last Edit by Priti Kwok CMA on 04/30/24 15:19 UA pH 5.5 Last Edit by Priti Kwok CMA on 04/30/24 15:19 UA Blood 0 Jameson/uL Last Edit by Priti Kwok CMA on 04/30/24 15:19 UA Specific [place] 1.020 Last Edit by Priti Kwok CMA on 04/30/24 15:19 UA Ketone Positive Last Edit by Priti Kwok CMA on 04/30/24 15:19 UA Bilirubin 1 mg/dL Last Edit by Priti Kwok CMA on 04/30/24 15:19 UA Glucose 0 mg/dL Last Edit by Priti Kwok CMA on 04/30/24 15:19 Results Reviewed Results Reviewed: Laboratory Last Values Urine pH (Auto) 5.5 04/30/24 15:18 Specific [place] (Auto) 1.020 04/30/24 15:18 Urine Protein (Auto) 15 mg/dL 04/30/24 15:18 Glucose (UA)(Auto) 0 mg/dL 04/30/24 15:18 Urine Ketones (Auto) Positive 04/30/24 15:18 Urine Blood (Auto) 0 Jameson/uL 04/30/24 15:18 Urine Nitrite (Auto) Negative 04/30/24 15:18 Urine Bilirubin (Auto) 1 mg/dL 04/30/24 15:18 Urine Urobilinogen (Auto) 0.2 mg/dL 04/30/24 15:18 Leukocyte Esterase (Auto) 0 Isabel/uL 04/30/24 15:18 Assessment & Plan Assessment & Plan (1) Peyronie's disease: Code(s): N48.6 - Induration penis plastica Category: Medical (2) Erectile dysfunction: Code(s): N52.9 - Male erectile dysfunction, unspecified Category: Medical Plan P.r.n. follow-up Orders: Orders AMB Urinalysis Automated Today Z13.9 - Encounter for screening, unspecified AMB Post Void Residual by ultrasound Today R30.0 - Dysuria Patient Instructions: Imaging studies, laboratory and physical exam results were discussed and reviewed in detail. No major barriers to patient understanding were identified. An opportunity to ask questions regarding the treatment plan was provided. All questions were answered. The patient expressed understanding and agreement with the above treatment plan. The patient is aware they should contact our office by phone for worsening of their current condition or the appearance of new urologic symptoms. Compliance is encouraged with any medications and followup testing that is ordered. It is a privilege to participate in the urologic care of your patient. If you have any questions or concerns regarding treatment for the above conditions, or other urologic issues, please do not hesitate to contact me. The office telephone contact is [phone]. This note is constructed using voice recognition software. While every effort has been made to ensure accuracy saddle cutter errors may have been included. Yours sincerely, Dr Bc Mccollum MD, [facility] - Urology Providers of Expert, Compassionate Care for the Genitourinary System Coding Level of Care Code Est Pt Level 3 (81260) Diagnoses Peyronie's disease N48.6 Erectile dysfunction N52.9 CPT Codes Post Residual Void - PVR CPT Code: 83876-Ldan Void Residual by ultrasound ([id number])
== END 2024-04-30 15:34 | disposition home or self-care (01) ==
PROVIDERS: PCP Nurse Practitioner; Referring Provider Nurse Practitioner; Visit Provider Urology
DX: N48.6 Induration penis plastica (principal); N52.9 Male erectile dysfunction, unspecified; Z13.9 Encounter for screening, unspecified
CPT/HCPCS: 99213

== ENCOUNTER → 2024-04-30 15:04 | Outpatient (BNVA) | payer MEDICAID, SELFPAY | PROVIDERS: PCP Nurse Practitioner; Visit Provider Urology | DX: N48.6 Induration penis plastica (principal); N52.9 Male erectile dysfunction, unspecified | CPT/HCPCS: 51798; 81003; 99212 ==

== ENCOUNTER 2024-05-27 09:29 | Outpatient (REF) | payer MEDICAID, SELFPAY ==
--- NOTE | ~2024-05-27 | XR_ITS ---
EXAMINATION: XR CHEST CLINICAL INFORMATION: Upper extremity edema. History of coronary artery disease. COMPARISON: None available. TECHNIQUE: 2 views of the chest were obtained. FINDINGS: Lungs are well-inflated and clear. Trachea is midline in position. No interstitial disease, consolidation or mass. No pleural effusion or pneumothorax. Cardiac silhouette and pulmonary vessels are normal in size. The mediastinum and yovani have normal contour. No acute osseous abnormality. Surgical clips are seen in the upper abdomen. XR/XR chest 2V IMPRESSION: Lungs have a normal appearance. No acute cardiopulmonary abnormality.
== END 2024-05-27 09:30 | disposition home or self-care (01) ==
LOC: HO.HHCX 09:29
PROVIDERS: Visit Provider Family Medicine
DX: R60.9 Edema, unspecified (principal)
CPT/HCPCS: 36415; 71046; 80053; 85025

== ENCOUNTER 2024-05-27 10:38 | Outpatient (REF) | payer MEDICAID, SELFPAY ==
[2024-05-27 11:20] LABS: MANUAL DIFF FLAG NO
[2024-05-27 11:28] LABS: Basophils Percent Auto 0.5 % (0-2); Eosinophils Absolute Auto 0.3 X10*3/uL (0.0-0.4); Hematocrit 37.3 % (42.0-52.0); Hemoglobin 12.4 g/dl (14.0-18.0); Imm Gran Abs Auto 0.03 X10*3/uL (0.00-0.03); Imm Gran Pct Auto 0.5 % (0.0-0.4); Lymphocytes Absolute Auto 1.6 X10*3/uL (1.2-4.9); Mean Corpuscular HGB Conc 33.2 g/dl (31.0-36.0); Mean Corpuscular Hemoglobin 30.8 pg (27.0-33.0); Mean Corpuscular Volume 92.6 fL (80.0-98.0); Mean Platelet Volume 9.7 fL (9.4-12.4); Monocytes Absolute Auto 0.7 X10*3/uL (0.1-1.2); Monocytes Percent Auto 12.6 % (2-11); Neutrophils Absolute Auto 3.1 x10*3/uL (2.0-8.3); Neutrophils Percent Auto 53.4 % (45-73); Platelet Count 327 X10*3/uL (160-400); Red Blood Count 4.03 X10*6/uL (4.60-5.80); Red Cell Distribution Width 13.8 % (11.0-16.0); White Blood Count 5.8 X10*3/uL (4.8-10.8)
[2024-05-27 11:58] LABS: Alanine Aminotransferase 30 U/L (0-40); Albumin Level 4.2 g/dL (3.5-5.0); Alkaline Phosphatase 90 U/L (39-117); Anion Gap 14 (12-20); Aspartate Amino Transferase 28 U/L (5-37); Bilirubin Total 0.4 mg/dL (0.0-1.0); Blood Urea Nitrogen 13 mg/dL (9-16); Calcium 9.5 mg/dL (8.4-10.2); Carbon Dioxide 27 mmol/L (22-29); Chloride 103 mmol/L (96-108); Estimated Glomerular Filt Rate > 60; Glucose Random 121 mg/dL (60-115); Potassium 4.2 mmol/L (3.3-5.1); Sodium 140 mmol/L (135-145)
== END 2024-05-27 10:39 | disposition home or self-care (01) ==
LOC: HO.HHCL 10:38
PROVIDERS: Visit Provider Family Medicine
DX: Z13.89 Encounter for screening for other disorder (principal)
CPT/HCPCS: 36415; 80053; 85025

== ENCOUNTER 2024-06-24 15:06 | Outpatient (AMB) | payer MEDICARE, MEDICAID, SELFPAY ==
--- NOTE | 2024-06-24 15:26 | MHC.OFFVIS ---
Intake Visit Reasons: H&P Penile prosthetic with remodeling Intake Note: Patient is present for H&P Penile Prosthetic with Remodeling Urology Med: Tadalafil Blood Thinners: Aspirin, Plavix Allergies simvastatin Allergy (Mild, Verified 06/03/24 13:09) elevated CPK HPI Comments Details: Zane is a pleasant male. He is a patient of Dr. Hanna. He has seen for the following urologic conditions - erectile dysfunction - Peyronie's disease He would like to move ahead with penile prosthetic Procedure scheduled Discussed pre and postoperative care including use of catheter and dressing Plan for prosthetic placement with Peyronie's remodeling Peyronie's disease Longstanding No pain Right ventral plaque on exam Has interest in penile prosthetic Failed daily Cialis Would also need to use penile vacuum pump for 3 months prior to prosthetic placement in order to maximize size PFSH Medical History (Updated 07/01/24 @ 13:36 by Talia Winkler RN) CAD (coronary artery disease) Pre-diabetes TIA (transient ischemic attack) Asthma Colon cancer screening Hyperlipidemia Surgical History (Updated 07/01/24 @ 13:27 by Talia Winkler RN) History of prostate surgery History of colonoscopy (~2008) History of ankle surgery (2008) History of cholecystectomy (1997) Family History Mother History of diabetes mellitus Brother History of diabetes mellitus Father History of myocardial infarction Social History (System 06/03/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) Alcohol intake: current Alcohol intake frequency: holidays/special occasions only Alcohol type: beer Second Hand Smoke Exposure: No Substance Use Type: IV Drugs Review of Systems Const Denies chills and Denies fever(s) Card Reports no additional complaints and Denies syncope Resp Denies cough GI Denies abdominal pain and Denies heartburn Reports as per HPI and Denies change in libido Neuro Denies syncope Psych Denies change in libido Endo Denies change in libido Physical Exam Const General: cooperative, healthy appearing, comfortable and no acute distress Orientation/consciousness: patient oriented x3 HEENT Face and sinus: Yes normal facial exam Mouth: moist mucous membranes Neck Neck: Yes normal visual inspection, Yes full ROM and Yes trachea midline Chest Chest palpation & inspection: normal inspection of the chest Resp Effort & Inspection: normal respiratory effort, able to speak in complete sentences and no respiratory distress GI Inspection: Yes normal to inspection Back/Spine/Pelvis Cervical Spine: normal cervical lordosis Thoracic/Lumbar Spine: thoracic and lumbar spine normal to inspection Skin General skin exam: no rashes or lesions noted Neuro General: patient oriented x3, gait normal, tone normal and moves all extremities Extrem General: Yes normal to inspection and Yes capillary refill normal Telehealth Telehealth Location of provider rendering services: practice address Location of patient: address on file Patient Identification confirmed using: Name, : Yes Telehealth method: voice only Patient verbally consented to treatment: Yes Patient verbally consented to billing insurance company: Yes Patient informed of any privacy concerns related to visit: Yes Assessment & Plan Assessment & Plan (1) Erectile dysfunction: Code(s): N52.9 - Male erectile dysfunction, unspecified Category: Medical (2) Peyronie's disease: Code(s): N48.6 - Induration penis plastica Category: Medical Plan Risks, benefits and alternatives to therapy were discussed. These include but are not limited to infection, bleeding, damage to local organs and tissues, need for further interventions. Anesthetic risks regarding cardiac arrhythmia, blood clots, and potential mortality were discussed. The patient understands the typical recovery time and the outpatient nature of the procedure. After consideration of these risks the patient gives full informed consent and they wish to move ahead with the procedure. Risks include perforation of urethra, posterior corporal perforation, infection. Patient Instructions: Imaging studies, laboratory and physical exam results were discussed and reviewed in detail. No major barriers to patient understanding were identified. An opportunity to ask questions regarding the treatment plan was provided. All questions were answered. The patient expressed understanding and agreement with the above treatment plan. The patient is aware they should contact our office by phone for worsening of their current condition or the appearance of new urologic symptoms. Compliance is encouraged with any medications and followup testing that is ordered. It is a privilege to participate in the urologic care of your patient. If you have any questions or concerns regarding treatment for the above conditions, or other urologic issues, please do not hesitate to contact me. The office telephone contact is [phone]. This note is constructed using voice recognition software. While every effort has been made to ensure accuracy physician executive errors may have been included. Yours sincerely, Dr Bc Mccollum MD, [facility] - Urology Providers of Expert, Compassionate Care for the Genitourinary System Coding Level of Care Code Est Pt Level 4 (17591) Diagnoses Erectile dysfunction N52.9 Peyronie's disease N48.6
== END 2024-06-24 16:30 | disposition home or self-care (01) ==
LOC: HO.HUSH 15:06
PROVIDERS: PCP Nurse Practitioner; Visit Provider Urology
DX: N52.9 Male erectile dysfunction, unspecified (principal); N48.6 Induration penis plastica
CPT/HCPCS: 99214

== ENCOUNTER → 2024-06-24 15:06 | Outpatient (BNVA) | payer MEDICARE, MEDICAID, SELFPAY | PROVIDERS: PCP Nurse Practitioner; Visit Provider Urology | DX: N52.9 Male erectile dysfunction, unspecified (principal); N48.6 Induration penis plastica | CPT/HCPCS: 99212 ==

== ENCOUNTER 2024-07-05 05:54 | Day surgery (SDC) | payer MEDICARE, MEDICAID, SELFPAY ==
[2024-07-01 13:38] VITALS: BMI 34.0
[2024-07-05] VITALS (11 sets, daily range): BP systolic 104–143; BP diastolic 68–84; PULSE 79–94; RESP 14–16; TEMP 36.3–36.6; O2SAT 94–97; BMI 32.2
[2024-07-05] MEDS: Lactated Ringers 1,000 ML 80 ML IVCONT (06:51)
--- NOTE | 2024-07-05 07:25 | P.OP_ITS ---
Operative Note Operative Note Date of Service: 07/05/24 Narrative: PreOperative Diagnosis: Erectile dysfunction with Peyronies Post Operative Diagnosis: Erectile dysfunction with Peyronies Procedure: Placement of inflatable penile prosthetic with remodelling Surgeon: Dr Bc Mccollum Anesthesia: General Indications for procedure: Progressive erectile dysfunction in setting of diabetes Non responsive to oral or injectable medications. Maximum doses have been trialled. Is aware of the risks and benefits particularly related to mechanical failure, infection, loss of sensation. Procedure: After informed consent was verified the patient was brought to the operating room and placed in a supine position. Anesthesia was administered per protocol. The patient was shaved with clippers, and prepped with cholhexidine based solution. He was draped in a sterile fashion. Safety pause time-out performed. Since he is a diabetic he was given triple coverage with IV vancomycin, Pip-Tazo and fluconazole per modified guideline. 14 Haitian Grimm catheter was placed on the field. Bladder was drained. [place] retractor with penile support was placed. Local anesthetic infiltrated horizontally 1.5cm proximal from the penoscrotal junction. Dorsal nerve block was placed inferior to the symphsis pubis in the midline and perineal/crural block was placed 1 fingerbreadth lateral to the midline angled at 45 degrees. The penis was placed in a cephalad position using the glans hook on the [place]. A horizontal scrotal incision was made at the penoscrotal junction and taken down to the tunica. Dissection was performed 1st on the left side and then on the right side to fully expose the proximal tunica of the corpora. Midline dissection was required to lift off the median attachments. At this point stay hooks were placed in a star shaped pattern. A double row of 3-0 Vicryl stay sutures were placed through the proximal corporal tunica with 1cm spacing and labeled and marked bilaterally. Colored vicryl was placed medial and plain vicryl lateral. Blue towels were used to isolate left from right. The same procedure was performed first on the left and then on the right side. The next step was an incision was made between the 2 rows of stay sutures through the tunica using a 15 Blade. This was approximately 2.5 cm in length. The left was completed and then the right side. 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 The stay hooks were removed from the [place]. The penile support was removed. Hegar dilators were used in stepwise increasing size to dilate the corporal bodies in a proximal and distal fashion until it could accept a 13 Hegar dilator. Care was taken to reach the sacrum on the posterior dilation and the mid-glans position on the distal dilation. Dilation was performed on the left- hand side followed by the right-hand side. Once complete the 12 Hegar dilator was placed up the left distal corporal body and the 13 Hegar dilator placed up the right distal corporal body. Neither dilator touched each other demonstrating cross over had not occurred. After dilation each corporal body were washed with antibiotic normal saline. At this point the huber measuring device was introduced. On the left side the proximal dilation measured at 10 cm and the distal dilation measured approximately 11 cm on the left. On the right side 10 cm and 11 cm respectively. Based on the considerations from dilatation and an assessment of the penile base girth a decision was made regarding penile prosthetic choice. [] Titan Pump - 20cm Batch [id number] [place] Label - 125 cc - [id number] Prior to prosthetic preparation placement of the reservoir was performed. The 100cc concealed reservoir was chosen. Surgical gloves were changed at this point in the procedure prior to handling the prosthetic. The right inguinal canal was palpated and finger dissection plus the blue hook retractor were used to expose the floor of the canal and palpate the medial edge adjacent to the rectur abdominis tendon insertion. A Metzenbaum scissors were used to punch a small hole in the posterior wall of the medial aspect of the inguinal canal. This was enlarged with the tip of the index finger. The concealed reservoir was then placed through this hole into the preperitoneal, retro body wall space. This was filled with 100 cc injectable normal saline and minimal back pressure was noted. Shod clamps were placed. Preparation of the corporal cylinders and integrated pump were complete. Rear tip extenders had been attached. An introducer Howard needle was used to thread the distal tip thread from left side corporal prosthetic. The threaded needle was loaded into the huber device and placed through the corporal defect to the mid glans position. The needle was advanced out through the glans of the penis. The prosthetic was then placed into the corporal defect. The proximal portion, with attached rear tip machine welt butter, was advanced and placed using the enclosed pusher device. Once the proximal portion was properly seated the distal component was introduced and brought out to the distal portion of the corpora by retracting the glans suture. A similar procedure was repeated on the right side. Tubing covering was stripped. The penis was elevated by grasping the distal glans sutures. The prosthetic was then inflated with approximately 80 cc of normal saline. No defects were seen. The prosthetic remained midline and the distal tips could be palpated in the mid penile gland indicating correct placement. The penile prosthetic was deflated. The parallel stay sutures were then secured in a horizontal fashion. The proximal pair of sutures were tied first. The proximal suture ends were tied in an air knot. The distal suture ends were lifted tightening the proximal knot onto tissue and closing the corporotomy. This was repeated with the second pair of distal sutures. The left side was completed first followed by the right. The scrotum was irrigated. Blunt dissection was performed to create a scrotal pocket. The pump was placed into the scrotal pocket and held using a clamp. The excess tubing from the pump and reservoir was isolated using rubber shod clamps. Excess tubing was cut with scissors leaving a 1 inch length. The tubing ends were spiritzed with saline. Compression fittings were placed and locked using the compression clamp. The penile prosthetic was then refilled to ensure proper function and adequate flow between the reservoir and the prosthetic. A 3-0 Vicryl was then used to secure tissue so the pump was kept in the dependent position using a purse string suture Tissue was reapproximated with 3-0 Vicryl in a horizontal fashion. At least 2 layers were created Skin was closed using a running 4.0 monocryl suture. The wounds were cleaned and dried. Dermal glue was used to cover the incision. Once the incision was dry and modified mummy / broccoli stalk dressing was applied. This consisted of a layer of brooke followed by Coban. Two-three pumps had been placed into the prosthetic so as to keep the prosthetic partially filled. A cap was left on the Grimm catheter to allow drainage for the next 48 hours. He tolerated the procedure well was extubated in operating room transferred in stable condition to the recovery area. Drains: 14 Haitian Grimm catheter Pathology: None
--- NOTE | 2024-07-05 07:25 | MHC.SHP ---
Pre-Procedural Eval Section A - 24 Hr Update-Section A only Date of Service: 07/05/24 The patient is an INPATIENT: No Changes since office visit: No Cold of Flu in the past 2 weeks, No New Medical Problems, No Changes in Medication and No Patient answered all questions The patient has been examined within 24 hours of the surgical procedure. The History & Physical has been completed within 30 days and I have reviewed it.: Yes Section B - Complete if H&P > 30 days Chief Complaint: Induration penis plastica Details of Present Illness: Plan for penile prosthetic with remodeling Allergies: Allergies Allergy/AdvReac Type Severity Reaction Status Date / Time simvastatin Allergy Mild elevated Verified 06/03/24 13:09 CPK Plan I have reviewed the history and physical and performed a pertinent physical examination on my patient. No changes have occurred unless specified. Time Spent With Patient Time: Total time managing care of this patient today ____ minutes.
--- NOTE | 2024-07-05 07:26 | P.CONAN_ITS ---
HPI - Anesthesia Eval Consult details Narrative: for insertion penile prosthesis PMFSH Active Problems Active Problems: All Active Problems Erectile dysfunction (Acute) Pharyngitis (Acute) Peyronie's disease (Acute) Colon cancer screening (Acute) Past Medical History Medical History CAD (coronary artery disease) Pre-diabetes TIA (transient ischemic attack) Asthma Colon cancer screening Hyperlipidemia Narrative: Pt tells me that he started having chest pains about two years ago. Underwent what sounds like cardiac cath w two vessels opened/stented. Takes plavix and aspirin. Stopped 1week. No chest pain. 'Cleared' by cardology w 'moderate' risk. Family History Family History Mother History of diabetes mellitus Brother History of diabetes mellitus Father History of myocardial infarction Family history of problems with anesthesia: No Surgical History Surgical History History of prostate surgery History of colonoscopy (~2008) History of ankle surgery (2008) History of cholecystectomy (1997) History of Problems with Anesthesia: No Social History Social History (System 06/03/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) Are you a primary healthcare customer service to a significant other at home: No Do you presently have visiting nurse or other home services: No Alcohol intake: current Alcohol intake frequency: holidays/special occasions only Alcohol type: beer Patient Tobacco Use Status: Never used Tobacco Second Hand Smoke Exposure: No Use of substances other than those prescribed or required for medical reasons: No Substance Use Type: IV Drugs Have you been hit, kicked, punched, or otherwise hurt by someone within the past year? If so, by whom?: No Are you DNR?: No Advance Directives: No Advance Directives Information Provided: Yes Recently lost weight without trying: No Nutrition Risks: No Nutritional Risk Poor oral hygiene: No Meds Allergies Allergy/AdvReac Type Severity Reaction Status Date / Time simvastatin Allergy Mild elevated Verified 06/03/24 13:09 CPK Active Medications: Current Medications Lactated Ringer's (Lr) 1,000 mls @ 80 mls/hr IVCONT .[id number] GREG Last Admin: 07/05/24 06:51 Dose: 80 mls/hr Home Medications ?Medication ?Instructions ?Recorded ?Confirmed ?Last Taken ?Type acetaminophen 500 mg capsule 1,000 mg PO TID PRN Pain 10/16/20 07/05/24 07/04/24 History albuterol sulfate 2.5 mg/3 mL 2.5 mg inhalation Q4-6H PRN 10/16/20 07/05/24 07/04/24 History (0.083 %) solution for nebulization Shortness Of Breath albuterol sulfate 90 mcg/actuation 2 puff inhalation Q6H PRN 10/16/20 07/05/24 07/04/24 History aerosol inhaler (ProAir HFA) Shortness Of Breath amlodipine 10 mg tablet 10 mg PO DAILY 10/16/20 07/05/24 07/04/24 History aspirin 325 mg tablet,delayed 325 mg PO DAILY 10/16/20 07/05/24 06/19/24 History release atorvastatin 80 mg tablet 80 mg PO BEDTIME 10/16/20 07/05/24 07/04/24 History blood pressure test kit medium and #1 ea 10/16/20 07/05/24 07/04/24 History large cuffs cholecalciferol (vitamin D3) 50 50 mcg PO DAILY 10/16/20 07/05/24 07/04/24 History mcg (2,000 unit) capsule cyclobenzaprine 5 mg tablet 5 mg PO TID PRN Muscle Spasm 10/16/20 07/05/24 07/04/24 History fluticasone 250 mcg-salmeterol 50 1 inh inhalation BID 10/16/20 07/05/24 07/04/24 History mcg/dose blistr powdr for inhalation (Advair Diskus) ibuprofen 800 mg tablet 800 mg PO TID 10/16/20 07/05/24 07/04/24 History loratadine 10 mg tablet 10 mg PO DAILY 10/16/20 07/05/24 07/04/24 History mecobalamin (vitamin B12) 1,000 1,000 mcg sublingual DAILY 10/16/20 07/05/24 07/04/24 History mcg disintegrating tablet,sublingual quetiapine 100 mg tablet (Seroquel) 100 mg PO BEDTIME 10/16/20 07/05/24 07/04/24 History venlafaxine 75 mg capsule,extended 75 mg PO DAILY 10/16/20 07/05/24 07/04/24 History release 24 hr zaleplon 10 mg capsule 10 mg PO BEDTIME PRN Insomnia 10/16/20 07/05/24 07/04/24 History clopidogrel 75 mg tablet (Plavix) 75 mg PO DAILY 06/15/24 07/05/24 06/19/24 History metoprolol succinate 25 mg 50 mg PO DAILY 06/15/24 07/05/24 07/04/24 History tablet,extended release 24 hr Exam Height,Weight and Vital Signs: Height 5 ft 3 in Weight 82.554 kg Last Vital Signs Temp 97.3 F 07/05/24 06:52 Pulse 79 07/05/24 06:52 Resp 14 07/05/24 06:52 BP 133/79 07/05/24 06:52 Pulse Ox 97 07/05/24 06:52 O2 Del Method Room Air 07/05/24 06:52 Airway Mallampati Class: II TM Dist: <=3cm Neck ROM: Full Loose/Missing/Broken Teeth: No Heart: see above Lungs: ok Other: Echo 11/27/22 fairly normal, good LV, RV, IVC; all valves OK. Assessment and Plan Assessment Anesthesia Assessment: Anesthesia Plan Discussed and Chart Reviewed Final Anesthetic Review Family History of Problems with Anesthesia: No History of Problems with Anesthesia: No NPO: Yes ASA Class: III Final Preanesthetic Review: No Changes in Pt Med Stat, Meds/Allgs Chart Reviewed, Consent Obtained/Reviewed and Anes Risks/Benef Reviewed Patient Risk: Intermediate Procedure Risk: Low Anesthetic Plan Anesthetic Plan: GA and Agree w/ Assess. and Plan Disposition: Standard PACU
--- NOTE | 2024-07-05 07:50 | PC.NURSE ---
Vanco not done in preop per Dr Dyer. Anesthesia to administer during case.
[2024-07-05] MEDS: fentaNYL citrate/PF 100 MCG/2 ML VIAL 50 MCG IVPUSH ×3 (10:38→10:56)
[2024-07-05] MEDS: oxyCODONE HCl Immed Release 5 MG TABLET PO (11:33)
== END 2024-07-05 11:50 | disposition home or self-care (01) ==
PROVIDERS: Visit Provider Urology
PROC: (CPT 54405; principal; 2024-07-05 07:30)
DX: N48.6 Induration penis plastica (principal); N52.9 Male erectile dysfunction, unspecified; I25.10 Atherosclerotic heart disease of native coronary artery without angina pectoris; I10 Essential (primary) hypertension; J45.909 Unspecified asthma, uncomplicated; E78.5 Hyperlipidemia, unspecified; R73.03 Prediabetes; R07.9 Chest pain, unspecified; Z79.1 Long term (current) use of non-steroidal anti-inflammatories (NSAID); Z79.51 Long term (current) use of inhaled steroids; Z79.82 Long term (current) use of aspirin; Z79.899 Other long term (current) drug therapy; Z98.890 Other specified postprocedural states
CPT/HCPCS: 54405; C1813; J0131; J1450; J1580; J2250; J2543; J2704; J2795; J3010; J3370; J3371

== ENCOUNTER → 2024-07-05 05:54 | Outpatient (BNV) | payer MEDICARE, MEDICAID, SELFPAY | PROVIDERS: Visit Provider Urology | DX: N48.6 Induration penis plastica (principal) | CPT/HCPCS: 54405 ==

== ENCOUNTER → 2024-07-07 09:21 | Outpatient (BNVA) | payer MEDICARE, MEDICAID, SELFPAY | PROVIDERS: PCP Nurse Practitioner; Visit Provider Urology ==

== ENCOUNTER 2024-07-16 10:51 | Outpatient (AMB) | payer MEDICARE, MEDICAID, SELFPAY ==
--- NOTE | 2024-07-16 11:09 | MHC.OFFVIS ---
Intake Visit Reasons: Penile Prosthetic- 2wk follow up Intake Note: Patient is present for Post OP 2 week follow up Penile Prosthetic Urology Med: Tadalafil Antibiotic Allergy:None Blood Thinner: Plavix, Aspirin Aircraft Mechanic Armament Required: No Grounds Maintenance Worker: Grounds Maintenance Worker Present Accompanied by: Spouse Allergies simvastatin Allergy (Mild, Verified 07/16/24 11:11) elevated CPK HPI Comments Details: Zane is a pleasant male. He is a patient of Dr. Hanna. He has seen for the following urologic conditions - erectile dysfunction - Peyronie's disease Two week follow-up penile prosthetic Healing well Prosthetic was inflated and deflated multiple cycles to demonstrate to patient's Instructed to manipulate pump in shower and pulled down into scrotum to prevent retraction Review in 4 weeks Peyronie's disease Longstanding No pain Right ventral plaque on exam Has interest in penile prosthetic Failed daily Cialis 07/03 penile pump placement with remodeling [facility] Medical History CAD (coronary artery disease) Pre-diabetes TIA (transient ischemic attack) Asthma Colon cancer screening Hyperlipidemia Surgical History History of prostate surgery History of colonoscopy (~2008) History of ankle surgery (2008) History of cholecystectomy (1997) Family History Mother History of diabetes mellitus Brother History of diabetes mellitus Father History of myocardial infarction Social History Are you a primary administrator health care facility to a significant other at home: No Do you presently have visiting nurse or other home services: No Alcohol intake: current Alcohol intake frequency: holidays/special occasions only Alcohol type: beer Patient Tobacco Use Status: Never used Tobacco Second Hand Smoke Exposure: No Substance Use Type: IV Drugs Review of Systems Const Denies chills and Denies fever(s) Card Reports no additional complaints and Denies syncope Resp Denies cough GI Denies abdominal pain and Denies heartburn Reports as per HPI and Denies change in libido Neuro Denies syncope Psych Denies change in libido Endo Denies change in libido Physical Exam Const General: cooperative, healthy appearing, comfortable and no acute distress Orientation/consciousness: patient oriented x3 HEENT Face and sinus: Yes normal facial exam Mouth: moist mucous membranes Neck Neck: Yes normal visual inspection, Yes full ROM and Yes trachea midline Chest Chest palpation & inspection: normal inspection of the chest Resp Effort & Inspection: normal respiratory effort, able to speak in complete sentences and no respiratory distress GI Inspection: Yes normal to inspection Back/Spine/Pelvis Cervical Spine: normal cervical lordosis Thoracic/Lumbar Spine: thoracic and lumbar spine normal to inspection Skin General skin exam: no rashes or lesions noted Neuro General: patient oriented x3, gait normal, tone normal and moves all extremities Extrem General: Yes normal to inspection and Yes capillary refill normal Assessment & Plan Assessment & Plan (1) Erectile dysfunction: Code(s): N52.9 - Male erectile dysfunction, unspecified Category: Medical (2) Peyronie's disease: Code(s): N48.6 - Induration penis plastica Category: Medical Plan Four week follow-up Patient Instructions: Imaging studies, laboratory and physical exam results were discussed and reviewed in detail. No major barriers to patient understanding were identified. An opportunity to ask questions regarding the treatment plan was provided. All questions were answered. The patient expressed understanding and agreement with the above treatment plan. The patient is aware they should contact our office by phone for worsening of their current condition or the appearance of new urologic symptoms. Compliance is encouraged with any medications and followup testing that is ordered. It is a privilege to participate in the urologic care of your patient. If you have any questions or concerns regarding treatment for the above conditions, or other urologic issues, please do not hesitate to contact me. The office telephone contact is [phone]. This note is constructed using voice recognition software. While every effort has been made to ensure accuracy dump motor operator errors may have been included. Yours sincerely, Dr Bc Mccollum MD, ROS[facility] - Urology Providers of Expert, Compassionate Care for the Genitourinary System Coding Level of Care Code Global (90416) Diagnoses Erectile dysfunction N52.9 Peyronie's disease N48.6
== END 2024-07-16 11:23 | disposition home or self-care (01) ==
PROVIDERS: PCP Nurse Practitioner; Visit Provider Urology
DX: N52.9 Male erectile dysfunction, unspecified (principal); N48.6 Induration penis plastica
CPT/HCPCS: 99024

== ENCOUNTER → 2024-07-16 10:51 | Outpatient (BNVA) | payer MEDICARE, MEDICAID, SELFPAY | PROVIDERS: PCP Nurse Practitioner; Visit Provider Urology | DX: N52.9 Male erectile dysfunction, unspecified (principal); N48.6 Induration penis plastica; Z96.0 Presence of urogenital implants; Z45.9 Encounter for adjustment and management of unspecified implanted device | CPT/HCPCS: 99212 ==

== ENCOUNTER 2024-09-24 15:39 | Outpatient (AMB) | payer OTHER, SELFPAY ==
--- NOTE | 2024-09-24 15:41 | A.OFFVIS_ITS ---
Intake Visit Reasons: Penile Prosthetic- follow up Intake Note: Patient is Present for Follow Up Penile Prothesis Urology Medication: Pt states he is no longer on tadalafil Antibiotic Allergies: None Blood Thinners: Aspirin Patient states that he is doing well after his procedure Automatic Centrifugal Station Operator Required: No Allergies simvastatin Allergy (Mild, Verified 07/16/24 11:11) elevated CPK HPI Comments Details: Zane is a pleasant male. He is a patient of Dr. Hanna. He has seen for the following urologic conditions - erectile dysfunction - Peyronie's disease Eight week follow-up penile prosthetic placement Healing well Has used for intercourse Cleared for full activity Happy with current result Six-month follow-up Peyronie's disease with erectile dysfunction Longstanding Right ventral plaque on exam Failed daily Cialis 07/03 penile pump placement with remodeling - [employer] [facility] Medical History CAD (coronary artery disease) Pre-diabetes TIA (transient ischemic attack) Asthma Colon cancer screening Hyperlipidemia Surgical History History of prostate surgery History of colonoscopy (~2008) History of ankle surgery (2008) History of cholecystectomy (1997) Family History Mother History of diabetes mellitus Brother History of diabetes mellitus Father History of myocardial infarction Social History Are you a primary assistant child care teacher to a significant other at home: No Do you presently have visiting nurse or other home services: No Alcohol intake: current Alcohol intake frequency: holidays/special occasions only Alcohol type: beer Patient Tobacco Use Status: Never used Tobacco Second Hand Smoke Exposure: No Substance Use Type: IV Drugs Review of Systems Const Denies chills and Denies fever(s) Card Reports no additional complaints and Denies syncope Resp Denies cough GI Denies abdominal pain and Denies heartburn Reports as per HPI and Denies change in libido Neuro Denies syncope Psych Denies change in libido Endo Denies change in libido Physical Exam Const General: cooperative, healthy appearing, comfortable and no acute distress Orientation/consciousness: patient oriented x3 HEENT Face and sinus: Yes normal facial exam Mouth: moist mucous membranes Neck Neck: Yes normal visual inspection, Yes full ROM and Yes trachea midline Chest Chest palpation & inspection: normal inspection of the chest Resp Effort & Inspection: normal respiratory effort, able to speak in complete sentences and no respiratory distress GI Inspection: Yes normal to inspection Back/Spine/Pelvis Cervical Spine: normal cervical lordosis Thoracic/Lumbar Spine: thoracic and lumbar spine normal to inspection Skin General skin exam: no rashes or lesions noted Neuro General: patient oriented x3, gait normal, tone normal and moves all extremities Extrem General: Yes normal to inspection and Yes capillary refill normal Assessment & Plan Assessment & Plan (1) Peyronie's disease: Code(s): N48.6 - Induration penis plastica Category: Medical (2) Erectile dysfunction: Code(s): N52.9 - Male erectile dysfunction, unspecified Category: Medical Plan Six-month follow-up Patient Instructions: Imaging studies, laboratory and physical exam results were discussed and reviewed in detail. No major barriers to patient understanding were identified. An opportunity to ask questions regarding the treatment plan was provided. All questions were answered. The patient expressed understanding and agreement with the above treatment plan. The patient is aware they should contact our office by phone for worsening of their current condition or the appearance of new urologic symptoms. Compliance is encouraged with any medications and followup testing that is ordered. It is a privilege to participate in the urologic care of your patient. If you have any questions or concerns regarding treatment for the above conditions, or other urologic issues, please do not hesitate to contact me. The office telephone contact is [phone]. This note is constructed using voice recognition software. While every effort has been made to ensure accuracy concrete pipe machine operator errors may have been included. Yours sincerely, Dr Bc Mccollum MD, [facility] - Urology Providers of Expert, Compassionate Care for the Genitourinary System Coding Level of Care Code Est Pt Level 3 (01207) Diagnoses Peyronie's disease N48.6 Erectile dysfunction N52.9
== END 2024-09-24 15:52 | disposition home or self-care (01) ==
LOC: HO.HUSH 15:39
PROVIDERS: PCP Nurse Practitioner; Visit Provider Urology
DX: N48.6 Induration penis plastica (principal); N52.9 Male erectile dysfunction, unspecified
CPT/HCPCS: 99024

== ENCOUNTER → 2024-09-24 15:39 | Outpatient (BNVA) | payer OTHER, SELFPAY | PROVIDERS: PCP Nurse Practitioner; Visit Provider Urology | DX: N52.9 Male erectile dysfunction, unspecified (principal); N48.6 Induration penis plastica | CPT/HCPCS: 99212 ==

== ENCOUNTER 2024-11-16 13:59 | Outpatient (REF) | payer OTHER, SELFPAY ==
[2024-11-16 16:12] LABS: MANUAL DIFF FLAG NO
[2024-11-16 16:20] LABS: Basophils Percent Auto 0.4 % (0-2); Eosinophils Absolute Auto 0.4 X10*3/uL (0.0-0.4); Eosinophils Percent Auto 5.4 % (0-4); Hematocrit 35.6 % (42.0-52.0); Hemoglobin 11.8 g/dl (14.0-18.0); Imm Gran Abs Auto 0.04 X10*3/uL (0.00-0.03); Imm Gran Pct Auto 0.6 % (0.0-0.4); Lymphocytes Absolute Auto 2.2 X10*3/uL (1.2-4.9); Mean Corpuscular HGB Conc 33.1 g/dl (31.0-36.0); Mean Corpuscular Hemoglobin 29.2 pg (27.0-33.0); Mean Corpuscular Volume 88.1 fL (80.0-98.0); Monocytes Absolute Auto 0.6 X10*3/uL (0.1-1.2); Monocytes Percent Auto 9.3 % (2-11); Neutrophils Absolute Auto 3.6 x10*3/uL (2.0-8.3); Neutrophils Percent Auto 52.3 % (45-73); Platelet Count 370 X10*3/uL (160-400); Red Blood Count 4.04 X10*6/uL (4.60-5.80); Red Cell Distribution Width 14.7 % (11.0-16.0); White Blood Count 6.9 X10*3/uL (4.8-10.8)
== END 2024-11-16 14:00 | disposition home or self-care (01) ==
LOC: HO.HHCL 13:59
PROVIDERS: Visit Provider Internal Medicine
DX: Z01.818 Encounter for other preprocedural examination (principal)
CPT/HCPCS: 36415; 85025

== ENCOUNTER 2024-12-04 13:30 | Outpatient (REF) | payer OTHER, SELFPAY ==
--- OUTSIDE RECORDS SUMMARY | 2024-12-04 13:32 | XMS_ITS | Encounter Summary ---
Author Organization [employer] Address [address] [place] [address] [address] [place] [address] Care Team Providers Care Fruit Or Nut Crops Farm Manager Name Role Phone Enma Zuñiga MD Primary Care Pro vider Reason for Visit * Reason Comments Med Refill Encounter Details Date Type Department Care Team ([facility] Contact Info) Description 03/29/2024 Refill [facility] [address] [place] [address] [phone] Enma Zuñiga MD [address] [place] [address] [phone] Social History Tobacco Use Types Packs/Day Years Used Date Smoking Tobacco: Former Cigarettes Passive Smoke Exposure: Current Smokeless Tobacco: Never Alcohol Use Standard Drinks/Week Comments Yes 0 (1 standard drink = 0.6 oz pur e alcohol) Sex and Gender Information Value Date Recorded Sex Assigned at Male 09/09/2022 10:14 AM EDT Legal Sex Male 10:14 AM EDT Gender Identity Male 09/09/2022 10:14 AM EDT Sexual Orientation Straight 09/09/2022 10 :14 AM EDT documented as of this encounter Plan of Treatment Upcoming Encounters Date Type Department Care Team (Late Contact Info) Description 02/16/2025 9:15 AM EDT Office Visit [facility] [address] [place] [address] [phone] Enma Zuñiga MD [address] [place] [address] [phone] documented as of this encounter Visit Diagnoses Not on filedocumented in this encounter Care Teams Fruit Or Nut Crops Farm Manager Relationship Specialty Start Date End Date Enma Zuñiga MD [address] [place] [phone] PCP - General Internal Medicine 07/23/23 documented as of this encounter
--- OUTSIDE RECORDS SUMMARY | 2024-12-04 13:32 | XMS_ITS | Encounter Summary ---
Author Organization [employer] Address [address] [place] [address] [address] [place] [address] Care Team Providers Care Drying Supervisor Name Role Phone Enma Zuñiga MD Primary Care Pro vider Reason for Visit * Reason Comments Med Refill Encounter Details Date Type Department Care Team ([facility] Contact Info) Description 04/08/2024 Refill [facility] [address] [place] [address] [phone] Enma Zuñiga MD [address] [place] [address] [phone] Social History Tobacco Use Types Packs/Day Years [...] Description 02/16/2025 9:15 AM EDT Office Visit [facility] [address] [place] [address] [phone] Enma Zuñiga MD [address] [place] [address] [phone] documented as of this encounter Visit Diagnoses Not on filedocumented in this encounter Care Teams Drying Supervisor Relationship Specialty Start Date End Date Enma Zuñiga MD [address] [place] [phone] PCP - General Internal Medicine 07/23/23 documented as of this encounter
--- OUTSIDE RECORDS SUMMARY | 2024-12-04 13:32 | XMS_ITS | Encounter Summary ---
Author Organization [employer] Address [address] [place] [address] [place] [address] Care Team Providers Care Tool Maker Bench Name Role Phone Enma Zuñiga MD Primary Care Pro vider Reason for Visit * Reason Onset Date Comments Pre-op Exam 11/04/2024 Encounter Details Date Type Department Care Team ([facility] st Contact Info) Description 11/04/2024 Telephone [facility] [address] [place] [address] Enma Zuñiga MD [address] [place], [place] [phone] Pre-op Exam Social History Tobacco Use Types Packs/Day Years [...] AM EDT documented as of this encounter Miscellaneous Notes * Telephone Encounter - Milagro Schwab - 11/04/2024 2:31 PM EST Date of Surgery: within 30 days of pre-op (office did not want to book unless Pre-op was done) Surgical procedure being done: Tooth Extraction Type of anesthesia: local anesthesia Lab needed: Unknown EKG: Yes Surgeon's name: Unknown Facility name: [facility] Surgeon's office number: Surgeon's office fax number: UNknown Contact name (person you spoke with): Unknown Last office note from surgeon requested: Yes documented in this encounter Plan of Treatment Upcoming Encounters Date Type Department Care Team (Late st Contact Info) Description 02/16/2025 9:15 AM EDT Office Visit [facility] [address] [place] [address] [phone] Enma Zuñiga MD [address] [place] [address] [phone] documented as of this encounter Visit Diagnoses Not on filedocumented in this encounter Care Teams Tool Maker Bench Relationship Specialty Start Date End Date Enma Zuñiga MD [address] [place] [address] [phone] PCP - General Internal Medicine 07/23/23 documented as of this encounter
--- OUTSIDE RECORDS SUMMARY | 2024-12-04 13:32 | XMS_ITS | Encounter Summary ---
Author Organization [employer] Address [address] [facility] 7t [place] [address] Care Team Providers Care Cake Press Operator Name Role Phone Enma Zuñiga MD Primary Care Pro vider Encounter Details Date Type Department Care Team ([facility] st Contact Info) Description 11/16/2024 1:30 PM EST Office Visit [facility] [address] [place], [place] [phone] Syd Diaz MD [address] [place], [place] [phone] Preoperative examination (Primary Dx); Essential hypertension Social History Tobacco Use Types Packs/Day Years Used Date Smoking Tobacco: Former Cigarettes Passive Smoke Exposure: Current Smokeless Tobacco: Never Tobacco Cessation:Counseling Given: Not Answered Alcohol Use Standard Drinks/Week Comments Yes 0 (1 standard drink = 0.6 oz pur e alcohol) Depression Answer Date Recorded Patient Health Questionnaire-9 Score 0 11/16/2024 Patient Health Questionnaire-9 Score 0 11/16/2024 Last PHQ-9: Questionnaire Data Not on file 0 11/16/2024 Housing Stability Answer Date Recorded What is your housing situation today? I have [place] bowie 11/16/[address] you li ve. Do you have problems with any of the following? None of the above 11/16/2024 Food Insecurity Answer Date Recorded Within the past 12 months, y ou worried that your food would run out before you got money to buy more: Never True 11/16/2024 Within the past 12 months,th e food you bought just didn't last and you didn't have enough money to get more: Never True 05/2025 Transportation Answer Date Recorded In the past 12 months, has l ack of transportation kept you from medical appts, meetings, work or from getting things needed for daily living? No 11/16/2024 Utilities Answer Date Recorded In the past 12 months, has t he electric, gas, oil or water company threatened to shut off services in your home? No 11/16/2024 Depression Answer Date Recorded Patient Health Questionnaire-2 Score 0 11/16/2024 Sex and Gender Information Value Date Recorded Sex Assigned at Male 09/09/2022 10:14 AM EDT Legal Sex Male 10:14 AM EDT Gender Identity Male 09/09/2022 10:14 AM EDT Sexual Orientation Straight 09/09/2022 10 :14 AM EDT documented as of this encounter Last Filed Vital Signs Vital Sign Reading Time Taken Comments Blood Pressure 131/80 11/16/2024 1:24 PM EST Pulse 80 11/16/2024 1:24 PM EST Temperature 36.4 ??C (97.5 ??F) 11/16/2024 1:24 PM ES T Respiratory Rate 20 11/16/2024 1:24 PM EST Oxygen Saturation 97% 11/16/2024 1:24 PM EST Inhaled Oxygen Concentration - - Weight 87.4 kg (192 lb 9.6 oz) 11/16/2024 1:24 P M EST Height 160 cm (5' 3 ) 11/16/2024 1:24 PM EST Body Mass Index 34.12 11/16/2024 1:24 PM EST documented in this encounter Progress Notes * Syd Cantu MD - 11/16/2024 1:30 PM EST SUBJECTIVE Zane Denise is a 64 y.o. male who presents for No chief complaint on file.. 64 yr old male patient of Dr Santos with a Pmhx significant for CAD, HTN and Hyperlipidemia here fora preoperative exam requested by an outside Dental Provider. ([facility]) . Pt apparently will undergo a root canal and tooth extraction under local anesthesia. Of note patient had a preoperative exam back in 06/2024 by his corporate recruiter who cleared him for another procedure back then. Review of Systems Constitutional: Negative for fatigue and fever. HENT: Negative for ear pain. Eyes: Negative for visual disturbance. Respiratory: Negative for apnea, cough, chest tightness and shortness of breath. Cardiovascular: Negative for chest pain and palpitations. Gastrointestinal: Negative for abdominal pain, nausea and vomiting. Neurological: Negative for dizziness and headaches. Allergies Allergen Reactions Simvastatin Other reaction(s): elev CPK OBJECTIVE Vitals: 11/16/24 1324 BP: 131/80 BP Location: Left arm Patient Position: Sitting BP Cuff Size: Adult Pulse: 80 Resp: 20 Temp: 97.5 ??F (36.4 ??C) TempSrc: Temporal SpO2: 97% Weight: 192 lb 9.6 oz (87.4 kg) Height: 5' 3 (1.6 m) Physical Exam Vitals reviewed. Constitutional: Appearance: Normal appearance. HENT: Head: Normocephalic and atraumatic. Nose: Nose normal. Mouth/Throat: Mouth: Mucous membranes are moist. Pharynx: Oropharynx is clear. Eyes: Extraocular Movements: Extraocular movements intact. Conjunctiva/sclera: Conjunctivae normal. Pupils: Pupils are equal, round, and reactive to light. Cardiovascular: Rate and Rhythm: Normal rate and regular rhythm. Pulses: Normal pulses. Heart sounds: Normal heart sounds. Pulmonary: Effort: Pulmonary effort is normal. Breath sounds: Normal breath sounds. Abdominal: General: Bowel sounds are normal. Palpations: Abdomen is soft. Skin: General: Skin is warm. Capillary Refill: Capillary refill takes less than 2 seconds. Neurological: Mental Status: He is alert and oriented to person, place, and time. Psychiatric: Mood and Affect: Mood normal. Assessment/Plan Problem List Items Addressed This Visit Preoperative examination - Primary Patient is here for a preoperative exam Patient is scheduled for: root canal and tooth extraction On: To be determined By: outside Dental Provider Anesthesia: Local Pt to have a CBC EKG: Not applicable And today's Physical examination I do not see any contraindication for patient to undergo this: low Risk procedure under local anesthesia. Pt will hold Plavix and Asa 5 days prior to the procedure and restart after the procedure ( Pt had LYSSA > 1 year ago . Woodyard Operator recommended this back in 06/2024 when pt was about to undergo another procedure under general anesthesia. Patient has been advised to follow up after the procedure has been completed Relevant Orders CBC auto differential Essential hypertension Pt advised to take his antihypertensive medications the morning of the procedure as usual to prevent his blood pressure from going up during the procedure. documented in this encounter Miscellaneous Notes * Assessment & Plan Note - Syd Cantu MD - 11/16/2024 1:23 PM EST Associated Problem(s): Essential hypertension Pt advised to take his antihypertensive medications the morning of the procedure as usual to prevent his blood pressure from going up during the procedure. * Assessment & Plan Note - Syd Cantu MD - 11/16/2024 1:22 PM EST Associated Problem(s): Preoperative examination Patient is here for a preoperative exam Patient is scheduled for: root canal and tooth extraction On: To be determined By: outside Dental Provider Anesthesia: Local Pt to have a CBC EKG: Not applicable And today's Physical examination I do not see any contraindication for patient to undergo this: low Risk procedure under local anesthesia. Pt will hold Plavix and Asa 5 days prior to the procedure and restart after the procedure ( Pt had LYSSA > 1 year ago . Woodyard Operator recommended this back in 06/2024 when pt was about to undergo another procedure under general anesthesia. Patient has been advised to follow up after the procedure has been completed documented in this encounter Plan of Treatment Upcoming Encounters Date Type Department Care Team (Late st Contact Info) Description 02/16/2025 9:15 AM EDT Office Visit [facility] [address] [place] [phone] Enma Zuñiga MD [address] [place] [phone] documented as of this encounter Procedures Procedure Name Priority Date/Time Associated Diagnosis Comments CBC WITH AUTO DIFFERENTIAL Routine 11/16/2024 2:02 PM EST Preoperative examination documented in this encounter Results * (ABNORMAL) CBC auto differential (11/16/2024 2:02 PM EST) White Blood Count 6.9 4.8 - 10.8 X10*3/uL [facility] Red Blood Count 4.04(L) 4.60 - 5.80 X10*6/uL [facility] Hemoglobin 11.8(L) 14.0 - 18.0 g/dl [facility] Hematocrit 35.6(L) 42.0 - 52.0 % [facility] Mean Corpuscular Volume 88.1 80.0 - 98.0 fL [facility] Mean Corpuscular Hemoglobin 29.2 27.0 - 33.0 pg [facility] Mean Corpuscular HGB Conc 33.1 31.0 - 36.0 g/dl [facility] Red Cell Distribution Width 14.7 11.0 - 16.0 % [facility] Platelet Count 370 160 - 400 X10*3/uL [facility] Mean Platelet Volume 10.0 9.4 - 12.4 fL [facility] Neutrophils Percent Auto 52.3 45 - 73 % [facility] Imm Gran Pct Auto 0.6(H) 0.0 - 0.4 % [facility] Lymphocytes Percent Auto 32.0 20 - 40 % [facility] Monocytes Percent Auto 9.3 2 - 11 % [facility] Eosinophils Percent Auto 5.4(H) 0 - 4 % [facility] Basophils Percent Auto 0.4 0 - 2 % [facility] NRBC Pct Auto 0.0 0.0 - 0.2 /100WBC [facility] Neutrophils Absolute Auto 3.6 2.0 - 8.3 x10*3/uL [facility] Imm Gran Abs Auto 0.04(H) 0.00 - 0.03 X10*3/uL [facility] Lymphocytes Absolute Auto 2.2 1.2 - 4.9 X10*3/uL [facility] Monocytes Absolute Auto 0.6 0.1 - 1.2 X10*3/uL [facility] Eosinophils Absolute Auto 0.4 0.0 - 0.4 X10*3/uL [facility] Basophils Absolute Auto 0.0 0.0 - 0.2 X10*3/uL [facility] NRBC Abs Auto 0.000 0.0 - 0.012 X10*3/uL [facility] Blood Venous blood specimen / Unknown 11/16/2024 2:02 PM EST 11/16/2024 4:08 PM EST Syd Cantu MD LAB BLOOD ORDERABLES Final Result [facility] [address] [place] [phone] documented in this encounter Visit Diagnoses Diagnosis Preoperative examination- Primary Unspecified pre-operative examination Essential hypertension Unspecified essential hypertension documented in this encounter Additional Health Concerns Assessment Noted Time PHQ-9 Depression Total Score: 0 11/16/19 25 1:25 PM EST documented as of this encounter Care Teams Cake Press Operator Relationship Specialty Start Date End Date Enma Zuñiga MD [address] [place] [address] PCP - General Internal Medicine 07/23/23 documented as of this encounter
--- OUTSIDE RECORDS SUMMARY | 2024-12-04 13:32 | XMS_ITS | Encounter Summary ---
Author Organization [employer] Address [address] [place] [address] 7t [place] [address] Care Team Providers Care Sound Designer Name Role Phone Enma Zuñiga MD Primary Care Pro vider Reason for Visit * Reason Comments Med Refill Encounter Details Date Type Department Care Team (Late Contact Info) Description 01/21/2024 Refill [facility] MED[facility]INE [address] [place] [address] [phone] Enma Zuñiga MD [address] [place] [address] [phone] Social History Tobacco Use Types Packs/Day Years [...] Description 02/16/2025 9:15 AM EDT Office Visit [facility] MED[facility]INE [address] [place] [phone] Enma Zuñiga MD [address] [place] [address] [phone] documented as of this encounter Visit Diagnoses Not on filedocumented in this encounter Care Teams Sound Designer Relationship Specialty Start Date End Date Enma Zuñiga MD [address] [place] [phone] PCP - General Internal Medicine 07/23/23 documented as of this encounter
--- OUTSIDE RECORDS SUMMARY | 2024-12-04 13:32 | XMS_ITS | Encounter Summary ---
Author Organization [employer] Address [address] [place] [address] 7 [place] [address] Care Team Providers Care Locksmith Apprentice Name Role Phone Enma Zuñiga MD Primary Care Pro vider Reason for Visit * Reason Onset Date Comments Appointment Request 08/30/2024 Encounter Details Date Type Department Care Team (Late st Contact Info) Description 08/30/2024 Telephone [facility] [address] [place] [address] Enma Zuñiga MD [address] [place] [address] Appointment Request Social History Tobacco Use Types Packs/Day Years [...] encounter Miscellaneous Notes * Telephone Encounter - Sahra Denise - 08/30/2024 10:37 AM EDT Tc from pt requesting to book physical that was missed back in january. documented in this encounter Plan of Treatment Upcoming Encounters Date Type Department Care Team (Late st Contact Info) Description 02/16/2025 9:15 AM EDT Office Visit [facility] [address] [place] [address] Enma Zuñiga MD [address] [place], [place] [phone] documented as of this encounter Visit Diagnoses Not on filedocumented in this encounter Care Teams Locksmith Apprentice Relationship Specialty Start Date End Date Enma Zuñiga MD [address] [place], [place] [phone] PCP - General Internal Medicine 07/23/23 documented as of this encounter
--- OUTSIDE RECORDS SUMMARY | 2024-12-04 13:32 | XMS_ITS | Encounter Summary ---
Author Organization [employer] Address [address] [place] [address] 7t [place] [address] Care Team Providers Care Assistant Professor Of Theater Name Role Phone Enma Zuñiga MD Primary Care Pro vider Reason for Visit * Reason Comments Med Refill Encounter Details Date Type Department Care Team (Late st Contact Info) Description 08/05/2023 Refill [facility] [address] [place] [address] [phone] [facility] [address] [place], [place] [phone] Social History Tobacco Use Types Packs/Day Years [...] Description 02/16/2025 9:15 AM EDT Office Visit [facility] [address] [place] [phone] Enma Zuñiga MD [address] [place] [phone] documented as of this encounter Visit Diagnoses Not on filedocumented in this encounter Care Teams Assistant Professor Of Theater Relationship Specialty Start Date End Date Enma Zuñiga MD [address] [place] [phone] PCP - General Internal Medicine 07/23/23 documented as of this encounter
--- OUTSIDE RECORDS SUMMARY | 2024-12-04 13:32 | XMS_ITS | Encounter Summary ---
Author Organization [employer] Address [address] [place] [address] 7t [place] [address] Care Team Providers Care Catapult And Arresting Gear Officer Name Role Phone Enma Zuñiga MD Primary Care Pro vider Reason for Visit * Reason Comments Med Refill Encounter Details Date Type Department Care Team (Late st Contact Info) Description 06/09/[address] [facility] [address] [place] [address] [phone] Enma Zuñiga MD [address] [place] [address] [phone] Wheezing Social History Tobacco Use Types Packs/Day Years [...] Description 02/16/2025 9:15 AM EDT Office Visit [facility] [address] [place] [address] [phone] Enma Zuñiga MD [address] [place] [address] [phone] documented as of this encounter Visit Diagnoses Diagnosis Wheezing documented in this encounter Care Teams Catapult And Arresting Gear Officer Relationship Specialty Start Date End Date Enma Zuñiga MD [address] [place] [phone] PCP - General Internal Medicine 07/23/23 documented as of this encounter
--- OUTSIDE RECORDS SUMMARY | 2024-12-04 13:32 | XMS_ITS | Encounter Summary ---
Author Organization [employer] Address [address] [place] [address] 7t [place] [address] Care Team Providers Care Radiological Engineer Name Role Phone Enma Zuñiga MD Primary Care Pro vider Reason for Visit * Reason Onset Date Comments Chart Prep 11/04/2024 Encounter Details Date Type Department Care Team ([facility] st Contact Info) Description 11/04/2024 Telephone [facility] [address] [place] [address] Enma Zuñiga MD [address] [place] [phone] Chart Prep Social History Tobacco Use Types Packs/Day Years [...] encounter Miscellaneous Notes * Telephone Encounter - Nadine Tsai [place] - 11/04/2024 3:18 PM EST Chart Prep Labs: not applicable Images: not applicable Vaccines due: Covid Due, PCV20 Due, Flu Due, RSV in Pharmacy Due, and Shingles in pharmacy Due Referrals: Not Applicable Screenings: Colonoscopy Overdue care gaps: Sbirt, SDOH, PHQ-9, and Oral Health Chart prep for upcoming appt with Dr.Esparza iglesias. LB documented in this encounter Plan of Treatment Upcoming Encounters Date Type Department Care Team (Late st Contact Info) Description 02/16/2025 9:15 AM EDT Office Visit [facility] [address] [place] [address] Enma Zuñiga MD [address] [place] [phone] documented as of this encounter Visit Diagnoses Not on filedocumented in this encounter Care Teams Radiological Engineer Relationship Specialty Start Date End Date Enma Zuñiga MD [address] [place] [phone] PCP - General Internal Medicine 07/23/23 documented as of this encounter
--- OUTSIDE RECORDS SUMMARY | 2024-12-04 13:32 | XMS_ITS | Encounter Summary ---
Author Organization [employer] Address [address] [facility] 7t [place] [address] Care Team Providers Care Low Vision Therapist Name Role Phone Enma Zuñiga MD Primary Care Pro vider Reason for Visit * Reason Comments Cough Wheezing Encounter Details Date Type Department Care Team ([facility] st Contact Info) Description 12/04/2024 10:20 AM EST Office Visit [facility] [address] [place], [place] [phone] Jacob Camacho MD [address] [place], [place] [phone] Viral URI (Primary Dx); Moderate persistent asthma with (acute) exacerbation; Moderate persistent asthma, unspecified whether complicated Social History Tobacco Use Types Packs/Day Years [...] Sign Reading Time Taken Comments Blood Pressure 122/76 12/04/2024 10:12 AM EST Pulse 80 12/04/2024 10:12 AM EST Temperature 37 ??C (98.6 ??F) 12/04/2024 10: 12 AM EST Respiratory Rate 20 12/04/2024 10:1 2 AM EST Oxygen Saturation 95% 12/04/2024 10: 12 AM EST Inhaled Oxygen Concentration - - Weight 85.6 kg (188 lb 12.8 oz) 025 10:12 AM EST Height 160 cm (5' 3 ) 12/04/2024 10:12 AM EST Body Mass Index 33.44 12/04/2024 10:12 AM EST documented in this encounter Progress Notes * Jacob Camacho MD - 12/04/2024 10:20 AM EST Subjective History was provided by the patient. Zane Denise is a 64 y.o. male who presents for evaluation of symptoms of a URI. Symptoms include cough, shortness of breath, runny nose, and congestion. Onset of symptoms was 3 weeks ago, unchanged since that time. Associated negative symptoms include fever, chills, nausea, vomiting, diarrhea, ear pain, and rash. Evaluation to date: none. Treatment to date: none Previously was on Advair, but has not had Rx for few years. Objective Vitals: 12/04/24 1012 BP: 122/76 BP Location: Left arm Patient Position: Sitting BP Cuff Size: Adult Pulse: 80 Resp: 20 Temp: 98.6 ??F (37 ??C) TempSrc: Oral SpO2: 95% Weight: 188 lb 12.8 oz (85.6 kg) Height: 5' 3 (1.6 m) Physical Exam Vitals reviewed. Constitutional: Appearance: Normal appearance. HENT: Head: Normocephalic and atraumatic. Right Ear: Tympanic membrane, ear canal and external ear normal. Left Ear: Tympanic membrane, ear canal and external ear normal. Nose: Nose normal. No congestion or rhinorrhea. Mouth/Throat: Mouth: Mucous membranes are dry. Pharynx: Oropharynx is clear. No oropharyngeal exudate or posterior oropharyngeal erythema. Eyes: Extraocular Movements: Extraocular movements intact. Conjunctiva/sclera: Conjunctivae normal. Pupils: Pupils are equal, round, and reactive to light. Cardiovascular: Rate and Rhythm: Normal rate and regular rhythm. Heart sounds: Normal heart sounds. Pulmonary: Effort: Pulmonary effort is normal. No respiratory distress. Breath sounds: Wheezing (Scattered end-expiratory wheezing) present. No rhonchi or rales. Musculoskeletal: Cervical back: Normal range of motion and neck supple. Skin: General: Skin is warm and dry. Neurological: Mental Status: He is alert and oriented to person, place, and time. Psychiatric: Mood and Affect: Mood normal. Behavior: Behavior normal. Thought Content: Thought content normal. Judgment: Judgment normal. Zane was seen today for cough and wheezing. Diagnoses and all orders for this visit: Viral URI (Primary) - Influenza B (ID NOW Rapid Molecular) - Influenza A (ID NOW Rapid Molecular) - POCT COVID-19 Ag Garcia ID NOW - Respiratory Viral Panel PCR Moderate persistent asthma with (acute) exacerbation - predniSONE (Deltasone) 20 MG tablet; Take 2 tablets (40 mg) by mouth Once per day for 5 days. - Discontinue: albuterol (Ventolin HFA) 108 (90 Base) MCG/ACT inhaler; INHALE 2 PUFFS BY MOUTH EVERY 4-6 HOURS NEEDED Moderate persistent asthma, unspecified whether complicated - fluticasone-salmeterol (Advair) 45-21 MCG/ACT inhaler; Inhale 2 puffs in the morning and at bedtime. Rinse mouth with water after use to reduce aftertaste and incidence of candidiasis. Do not swallow. - albuterol (Ventolin HFA) 108 (90 Base) MCG/ACT inhaler; INHALE 2 PUFFS BY MOUTH EVERY 4-6 HOURS NEEDED Patient with a clinical presentation of asthma exacerbation in a setting of resolving viral URI Has not been taking Advair Underlying moderate persistent asthma Scattered end-expiratory wheezing, but no respiratory distress Speaking in full sentences Discussed supportive care with ample hydration, sleep position and rest Will check Respiratory panel Will treat with Prednisone 40mg daily for 5 days Advised to re-start Advair after the Prednisone course Albuterol prn OTC supportive medications reviewed Droplet precautions discussed Advised to contact the clinic if no improvement of symptoms Indications for UC/ER use reviewed documented in this encounter Plan of Treatment Upcoming Encounters Date Type Department Care Team (Late st Contact Info) Description 02/16/2025 9:15 AM EDT Office Visit [facility] [address] [place] [phone] Enma Zuñiga MD [address] [place] [address] Scheduled Orders Name Type Priority Associated Diagnoses Orde r Schedule Respiratory Viral Panel PCR Lab Routine Viral URI Ordered: 12/04/2024 documented as of this encounter Procedures Procedure Name Priority Date/Time Associated Diagnosis Comments POCT INFLUENZA B (ID NOW RAPID MOLECULAR) Routine 12/04/2024 10:33 AM EST Viral URI POCT INFLUENZA A (ID NOW RAPID MOLECULAR) Routine 12/04/2024 10:33 AM EST Viral URI POCT COVID-19 AG GARCIA ID NOW Routine 12/04/2024 10:33 AM EST Viral URI documented in this encounter Results * POCT COVID-19 Ag Garcia ID NOW (12/04/2024 10:33 AM EST) Coronavirus Antigen PCR Negative Negative, Indeterminate, None Detected, Invalid, Specimen unsatisfactory for evaluation, Weakly Positive Swab 12/04/2024 10:3 3 AM EST us Jacob Camacho MD POINT OF CARE TEST ENTER/EDIT OR DERABLES Final Result * Influenza A (ID NOW Rapid Molecular) (12/04/2024 10:33 AM EST) Influenza A Negative Negative, Indeterminate [facility] Swab 12/04/2024 10:3 3 AM EST us Jacob Camacho MD POINT OF CARE TEST ENTER/EDIT OR DERABLES Final Result Performing Organization Address [facility]/ZIP Co de Phone Number [facility] [address] [place] [phone] * Influenza B (ID NOW Rapid Molecular) (12/04/2024 10:33 AM EST) Influenza B Negative Negative, Indeterminate [facility] Swab 12/04/2024 10:3 3 AM EST us Jacob Camacho MD POINT OF CARE TEST ENTER/EDIT OR DERABLES Final Result Performing Organization Address [facility] de Phone Number [facility] [address] [place] [phone] documented in this encounter Visit Diagnoses Diagnosis Viral URI- Primary Acute upper respiratory infections of unspecified site Moderate persistent asthma with (acute) exacerbation Moderate persistent asthma, unspecified whether complicated documented in this encounter Additional Health Concerns Assessment Noted Time PHQ-9 Depression Total Score: 0 11/16/19 25 1:25 PM EST documented as of this encounter Care Teams Low Vision Therapist Relationship Specialty Start Date End Date Enma Zuñiga MD [address] [place] [address] PCP - General Internal Medicine 07/23/23 documented as of this encounter
--- OUTSIDE RECORDS SUMMARY | 2024-12-04 13:32 | XMS_ITS | Encounter Summary ---
Author Organization [employer] Address [address] [facility] [address] [place] [address] Care Team Providers Care Supervisory Forester Name Role Phone Enma Zuñiga MD Primary Care Pro vider Encounter Details Date Type Department Care Team (Latest Contact Info) Description 11/16/2024 Travel Social History Tobacco Use Types Packs/Day Years [...] is your housing situation today? I have shailesh bowie 11/16/[address] you [...] Description 02/16/2025 9:15 AM EDT Office Visit [facility] [address] [place] [phone] Enma Zuñiga MD [address] [place] [address] [phone] documented as of this encounter Visit Diagnoses Not on filedocumented in this encounter Additional Health Concerns Assessment Noted Time PHQ-9 Depression Total Score: 0 11/16/19 25 1:25 PM EST documented as of this encounter Care Teams Supervisory Forester Relationship Specialty Start Date End Date Emna Zuñiga MD [address] [place] [phone] PCP - General Internal Medicine 07/23/23 documented as of this encounter
--- OUTSIDE RECORDS SUMMARY | 2024-12-04 13:32 | XMS_ITS | Encounter Summary ---
Author Organization [employer] Address [address] [place] [address] 7t [place] [address] Care Team Providers Care Canvas Cutter Name Role Phone Enma Zuñiga MD Primary Care Pro vider Reason for Visit * Reason Onset Date Comments February12/02/2024 Encounter Details Date Type Department Care Team (Late st Contact Info) Description 12/02/2024 Telephone [facility] [address] [place], [place] [phone] Cailin Alvares MA February Social History Tobacco Use Types Packs/Day Years [...] encounter Miscellaneous Notes * Telephone Encounter - Cailin Alvares MA - 12/02/2024 1:40 PM EST T/C- [employer] Member and Patient made a Transfer Patient appointment with Tom for February. Appointment reminder sent via mail. documented in this encounter Plan of Treatment Upcoming Encounters Date Type Department Care Team (Late st Contact Info) Description 02/16/2025 9:15 AM EDT Office Visit [facility] [address] [place] [address] Enma Zuñiga MD [address] [place] [phone] documented as of this encounter Visit Diagnoses Not on filedocumented in this encounter Additional Health Concerns Assessment Noted Time PHQ-9 Depression Total Score: 0 11/16/19 25 1:25 PM EST documented as of this encounter Care Teams Canvas Cutter Relationship Specialty Start Date End Date Enma Zuñiga MD [address] [place] [phone] PCP - General Internal Medicine 07/23/23 documented as of this encounter
[2024-12-05 09:26] LABS: Adenovirus PCR Not Detected (Not Detect.); Bordetella parapertussis PCR Not Detected (Not Detect.); Bordetella pertussis PCR Not Detected (Not Detect.); Chlamydia pneumoniae PCR Not Detected (Not Detect.); Coronavirus 229E PCR Not Detected (Not Detect.); Coronavirus HKU1 PCR Not Detected (Not Detect.); Coronavirus NL63 PCR Not Detected (Not Detect.); Coronavirus OC43 PCR Not Detected (Not Detect.); Human metapneumovirus PCR Not Detected (Not Detect.); Influenza A PCR Not Detected (Not Detect.); Influenza B PCR Not Detected (Not Detect.); Mycoplasma pneumoniae PCR Not Detected (Not Detect.); Parainfluenza 1 PCR Not Detected (Not Detect.); Parainfluenza 2 PCR Not Detected (Not Detect.); Parainfluenza 3 PCR Not Detected (Not Detect.); Parainfluenza 4 PCR Not Detected (Not Detect.); RSV PCR Not Detected (Not Detect.); Rhino/Enterovirus PCR Not Detected (Not Detect.)
[2024-12-05 10:12] LABS: SARS-CoV-2 PCR Not Detected (Not Detect.)
== END 2024-12-04 13:31 | disposition home or self-care (01) ==
LOC: HO.HHCLNP 13:30
PROVIDERS: Visit Provider Family Medicine
DX: J06.9 Acute upper respiratory infection, unspecified (principal)
CPT/HCPCS: 87633

== ENCOUNTER 2025-04-18 11:44 | Outpatient (REF) | payer OTHER, SELFPAY ==
--- NOTE | ~2025-04-18 | XR_ITS ---
EXAMINATION: XR KNEE, RIGHT CLINICAL INFORMATION: several week h/o atraumatic anterior knee pain COMPARISON: None available. TECHNIQUE: Four views of the right knee. FINDINGS: Mild to moderate medial and mild lateral and patellofemoral compartment narrowing/osteoarthritis. Mild spurring of the tibial spines. No fracture or dislocation. No suspicious bone lesion. Mild enthesophyte pathic spurring of the superior and inferior patella. Mild chronic appearing fragmentation of the tibial tubercle, possible sequela of prior [place]-Schlatter disease. Mild prepatellar soft tissue swelling is present. There is a significant joint effusion present in the suprapatellar bursa. XR/XR knee RT 3V IMPRESSION: 1. No acute bony abnormalities. 2. Significant joint effusion in the suprapatellar bursa. Mild prepatellar soft tissue swelling, nonspecific. 3. Tricompartmental osteoarthrosis. Electronically signed by: Emiliano Baxter MD 04/18/2025 12:18 PM EDT
--- OUTSIDE RECORDS SUMMARY | 2025-04-18 13:29 | XMS_ITS | Clinical Summary ---
Author Organization [employer] Address [address] [place] [address] 7t [place] [address] Care Team Providers Care Formwork Carpenter Name Role Phone Enma Zuñiga MD Primary Care Pro vider Allergies Active Allergy Reactions Criticality Noted Date Comments Simvastatin 03/21/2011 Other reaction(s): elev CPK Medications clopidogrel (Plavix) 75 MG tablet Take by mouth in the morning. Active zaleplon (Sonata) 10 MG capsule 4 Active venlafaxine XR (Effexor XR) 150 MG 24 hr capsule 4 Active metoprolol succinate XL (Toprol-XL) 50 MG 24 hr tablet 4 Active clonazePAM (KlonoPIN) 0.5 MG tablet 4 Active fluticasone-eusebio meterol (Advair) 45-21 MCG/ACT inhalerIndicati ons:Moderate persistent asthma, unspecified whether complicated Inhale 2 puffs in the morning and at bedtime. Rinse mouth with water after use to reduce aftertaste and incidence of candidiasis. Do not swallow. 12 g 11 5 12/04/19 26 Active albuterol (Ventolin HFA) 108 (90 Base) MCG/ACT inhalerIndicati ons:Moderate persistent asthma, unspecified whether complicated INHALE 2 PUFFS BY MOUTH EVERY 4-6 HOURS NEEDED 18 g 11 5 Active QUEtiapine (SEROquel) 50 MG tablet Take 50 mg by mouth at bedtime. 5 Active atorvastatin (Lipitor) 80 MG tablet TAKE 1 TABLET BY MOUTH AT BEDTIME 30 tablet 2 5 Active amLODIPine (Norvasc) 10 MG tablet TAKE 1 TABLET BY MOUTH DAILY 30 tablet 2 5 Active cyanocobalamin (Vitamin B-12) 1000 MCG tablet TAKE 1 TABLET BY MOUTH DAILY 30 tablet 2 5 Active Aspirin Low Dose 81 MG EC tabletIndicatio ns:Pain TAKE 1 TABLET BY MOUTH DAILY 30 tablet 2 5 Active sennosides (Senna-Time) 8.6 MG tablet TAKE 1 TO 2 TABLETS BY MOUTH EVERY NIGHT AT BEDTIME FOR CONSTIPATION 60 tablet 2 5 Active loratadine (Claritin) 10 MG tablet TAKE 1 TABLET BY MOUTH DAILY NEEDED 30 tablet 2 5 Active D3 Super Strength 50 MCG (2000 UT) capsule TAKE 1 CAPSULE BY MOUTH DAILY 30 capsule 2 5 Active Active Problems Problem Noted Date Diagnosed Date Peyronie disease 02/16/2025 Erectile disorder 02/16/2025 Insomnia 02/16/2025 Health care maintenance 02/16/2025 Cobalamin deficiency 12/24/2021 Vitamin D deficiency 12/24/2021 Prediabetes 01/05/2018 Depressive disorder 12/21/2015 Dyslipidemia 12/21/2015 Essential hypertension 12/21/2015 Assessment & Plan (11/16/2024 1:23 PM EST): Pt advised to take his antihypertensive medications the morning of the procedure as usual to prevent his blood pressure from going up during the procedure. Moderate persistent asthma 12/21/2015 Overweight 12/21/2015 Resolved Problems Problem Noted Date Diagnosed Date Resolved Date Preoperative examination 11/16/202407/2025 Assessment & Plan (11/16/2024 1:51 PM EST): Patient is here for a preoperative exam [...] had LYSSA > 1 year ago . Discharging Machine Operator recommended this back in 06/2024 when pt was about to undergo another procedure under general anesthesia. Patient has been advised to follow up after the procedure has been completed Encounters Date Type Department Care Team Description 04/18/2025 10:20 AM EDT Office Visit [facility] [address] [place] [phone] Usama Baca MD Right anterior knee pain (Primary Dx) 04/18/2025 Travel 03/09/2025 Refill [facility] [address] [place] [address] Aniya Saleem MD Pain 02/16/2025 9:15 AM EDT Office Visit [address] [phone] Enma Zuñiga MD Annual physical exam (Primary Dx); Dietary counseling; Exercise counseling; Encounter for immunization; Peyronie disease; Erectile disorder; Iron deficiency anemia, unspecified iron deficiency anemia type; Other insomnia; Moderate persistent asthma, unspecified whether complicated; Essential hypertension; Depressive disorder; Dyslipidemia; Health care maintenance 02/16/2025 Travel 02/09/2025 Orders Only [facility] [address] [place] [address] Cherie Trivedi MD 02/04/[address] [address] Enma Zuñiga MD chart prep 02/04/2025 Patient Outreach [address] [address] Enma Zuñiga MD Care Coordination (CHW outreach for SDOH PT-1 and food needs-LVM ) 02/04/2025 Patient Outreach [address] [address] Enma Zuñiga MD Pre-visit Planning (SDOH Screening positive and Tobacco screening negative) 02/03/[address] [address] Enma Zuñiga MD PRE-OP from Last 3 Months Immunizations Immunization Administration Dates Next Due Hep A, Adult 06/30/2019 Influenza injectable quadriv alent IIV4 with preservative 08/05/2017,08/08/2016,07/27/2015 Influenza injectable quadriv alent preservative free 07/25/2022,01/21/2022 Influenza, IIV3, injectable 07/22/2011, 0 Influenza, Split (incl. del fied surface antigen) 08/19/2013 Pfizer Covid-19 Vaccine 12+ 02/16/2025 Pneumococcal Conjugate PCV 20 02/16/2025 Pneumococcal Polysaccharide PPSV23 06/24/2014, TD (adult), 2 Lf tetanus tox oid, preservative free, adsorbed 08/10/2001 Tdap 01/21/2022,07/22/2011 Family History Medical History Relation Name Comments DM2 Brother Heart attack Father's Brother DM2 Mother Heart attack Mother's Brother DM2 Sister Relation Name Status Comments Brother Father's Brother Mother Mother's Brother Sister Social History Tobacco Use Types Packs/Day Years Used Date Smoking Tobacco: Former Cigarettes Passive Smoke Exposure: Current Smokeless Tobacco: Never Comments:Used to smoke tobac co at 12 years of age until 41 years of age. 1 package a day, stopped 23 years ago, smoked for 31 years package year calculated 31-no need for lung cancer screening given stopped for more than 15 years Alcohol Use Standard Drinks/Week Comments Yes 0 (1 standard drink = 0.6 oz pur e alcohol) Depression Answer Date Recorded Patient Health Questionnaire-9 Score 0 02/16/2025 Patient Health Questionnaire-9 Score 0 02/16/2025 Last PHQ-9: Questionnaire Data Not on file 0 02/16/2025 Housing Stability Answer Date Recorded What is your housing situation today? I have shailesh bowie 11/16/[address] you li ve. Do you have problems with any of the following? None of the above 11/16/2024 Food Insecurity Answer Date Recorded Within the past 12 months, y ou worried that your food would run out before you got money to buy more: Sometimes True 2024 Within the past 12 months,th e food you bought just didn't last and you didn't have enough money to get more: Sometimes True 02/04/2025 Transportation Answer Date Recorded In the past [...] Date Recorded Patient Health Questionnaire-2 Score 0 02/16/2025 Internet Access Answer Date Recorded Internet Access Q1 Yes 02/04/2025 Internet Access Q2 Not on file 02/04/2025 Sex and Gender Information Value Date Recorded Sex Assigned at Male 09/09/2022 10:14 AM EDT Legal Sex Male 10:14 AM EDT Gender Identity Male 09/09/2022 10:14 AM EDT Sexual Orientation Straight 09/09/2022 10 :14 AM EDT Last Filed Vital Signs Vital Sign Reading Time Taken Comments Blood Pressure 133/73 04/18/2025 10:24 AM EDT Pulse 66 04/18/2025 10:24 AM EDT Temperature 36.9 ??C (98.5 ??F) 04/18/2025 10:24 AM E DT Respiratory Rate 21 04/18/2025 10:24 AM EDT Oxygen Saturation 95% 04/18/2025 10:24 AM EDT Inhaled Oxygen Concentration - - Weight 85.4 kg (188 lb 6 oz) 04/18/2025 10:24 AM EDT Height 160 cm (5' 3 ) 04/18/2025 10:24 AM EDT Body Mass Index 33.37 04/18/2025 10:24 AM EDT Plan of Treatment Upcoming Encounters Date Type Department Care Team (Late st Contact Info) Description 04/21/2025 2:15 PM EDT Office Visit [facility] [address] [place] [phone] Enma Zuñiga MD [address] [place] [address] Health Maintenance Due Date Last Done Comments CT Colonography 1959 FIT DNA/Cologuard 1960 FIT 1960 FOBT 1960 Sigmoidoscopy 1960 Hepatitis C Screening 1977 Zoster Vaccines (1 of 2) 2009 RSV Patients and Patients Aged 60 years or older (1 - Risk 60-74 years 1-dose series) 2019 Diabetes: Hemoglobin A1C 01/21/2023 01/21/2022, 08/11/2019 Influenza Vaccine (Season Ended) 2025 07/25/2022, 07/25/2022, 01/21/2022, Additional history exists COVID-19 Vaccine ( season) 2025 02/16/2025, 12/11/2021, 02/13/2021, Additional history exists Alcohol/Substance Use Screening 11/16/2025 11/16/2024 SDOH Screening 02/04/2026 02/04/2025 Depression Screening 02/16/2026 02/16/2025, 02/17/20 Tobacco Screening 04/18/2026 04/18/2025 Lipid Panel 01/21/2027 01/21/2022, 06/30/2020 Colonoscopy 11/30/2030 11/30/2020 Colorectal Cancer Screening 11/30/2030 DTaP/Tdap/Td Vaccines (3 - Td or Tdap) 01/22/2032 01/21/2022, 07/22/2011, 08/10/2001, Additional history exists Hepatitis A Vaccines Aged Out 06/30/2019 No long er eligible based on patient's age to complete this topic Pneumococcal Vaccine: 50+ Years Completed 02/16/2025, 06/24/2014, 06/08/2013, Additional history exists HIB Vaccines Aged Out No longer eligi ble based on patient's age to complete this topic HPV Vaccines Aged Out No longer eligi ble based on patient's age to complete this topic Hepatitis B Vaccines Aged Out No long er eligible based on patient's age to complete this topic IPV Vaccines Aged Out No longer eligi ble based on patient's age to complete this topic Meningococcal B Vaccine Aged Out No l onger eligible based on patient's age to complete this topic Meningococcal Vaccine Aged Out No stephanie nathalie eligible based on patient's age to complete this topic RSV under 20 months Aged Out No longe r eligible based on patient's age to complete this topic Rotavirus Vaccines Aged Out No longer eligible based on patient's age to complete this topic Procedures Procedure Name Priority Date/Time Associated Diagnosis Comments CBC Routine 04/18/2025 12:04 PM EDT Annual physical exam XR KNEE 3 VIEWS RIGHT Routine 04/18/2025 12:00 PM EDT Right anterior knee pain HEMOGLOBIN A1C Routine 01/21/2022 3:09 PM EDT LIPID PANEL, STANDARD Routine 01/21/2022 3:09 PM EDT HM COLONOSCOPY Routine 11/30/2020 1:31 PM EST from Last 3 Months or Most Recently Relevant to Health Maintenance Results * (ABNORMAL) CBC (04/18/2025 12:04 PM EDT) White Blood Count 7.6 4.8 - 10.8 X10*3/uL [facility] Red Blood Count 4.31(L) 4.60 - 5.80 X10*6/uL [facility] Hemoglobin 13.0(L) 14.0 - 18.0 g/dl [facility] Hematocrit 39.6(L) 42.0 - 52.0 % [facility] Mean Corpuscular Volume 91.9 80.0 - 98.0 fL [facility] Mean Corpuscular Hemoglobin 30.2 27.0 - 33.0 pg [facility] Mean Corpuscular HGB Conc 32.8 31.0 - 36.0 g/dl [facility] Red Cell Distribution Width 13.9 11.0 - 16.0 % [facility] Platelet Count 377 160 - 400 X10*3/uL [facility] Mean Platelet Volume 9.6 9.4 - 12.4 fL [facility] NRBC Pct Auto 0.0 0.0 - 0.2 /100WBC [facility] NRBC Abs Auto 0.000 0.0 - 0.012 X10*3/uL [facility] Blood Venous blood specimen / Unknown 04/18/2025 12:04 PM EDT 04/18/2025 1:04 PM EDT us Enma Garcia MD LAB BLOOD ORDERAB LES Final Result [facility] [address] [place] [address] [phone] * XR Knee 3 Views Right (04/18/2025 12:00 PM EDT) Anatomical Region Laterality Modality Lower Extremities, Knee Right Radiogra phic Imaging 04/18/2025 12:0 0 PM EDT Narrative 04/18/2025 12:23 PM EDT ?[facility] ?[address] ?[place] [address] ?XRay Report ? Signed ? Patient: Zane Mariscal ?MR#: [id number] ?? [id number] ? : 1960 ?Acct:[id number] ? Age/Sex: 64 / M ?ADM Date: 04/18/25 ? Loc: HO.HHCX ? Attending Dr: Usama Baca MD ? Ordering Physician: USAMA BACA MD ?? Date of Service: 04/18/25 ?? Procedure(s): XR knee RT 3V ?? Accession Number(s): [id number] ? cc: USAMA BACA MD ? EXAMINATION: ?? XR KNEE, RIGHT ? CLINICAL INFORMATION: ?? several week h/o atraumatic anterior knee pain ? COMPARISON: ?? None available. ? TECHNIQUE: ?? Four views of the right knee. ? FINDINGS: ?? Mild to moderate medial and mild lateral and patellofemoral compartment ?? narrowing/osteoarthritis. ?? Mild spurring of the tibial spines. ?? No fracture or dislocation. No suspicious bone lesion. ?? Mild enthesophyte pathic spurring of the superior and inferior patella. ?? Mild chronic appearing fragmentation of the tibial tubercle, possible ?? sequela of prior [place]-Schlatter disease. ?? Mild prepatellar soft tissue swelling is present. ? There is a significant joint effusion present in the suprapatellar ?? bursa. ? XR/XR knee RT 3V ?? IMPRESSION: ? 1. No acute bony abnormalities. ?? 2. Significant joint effusion in the suprapatellar bursa. Mild ?? prepatellar soft tissue swelling, nonspecific. ?? 3. Tricompartmental osteoarthrosis. ? Electronically signed by: ??Emiliano Baxter MD ??04/18/2025 12:18 PM EDT RP ? Dictated By: ?Emiliano Baxter MD ? Signed By: ?<Electronically signed by Emiliano Baxter MD in OV> ?04/18/25 1218 ? DD/ 1200 ? TD/TT: 04/18/25 1210 ? Reservoir Engineering Manager: ? Procedure Note Donrachealinterpreter, Image - 04/18/[address] [address] XRay Report Signed Patient: En MariscalR#: [id number] : 9Acct:[id number] Age/Sex: 64 / MADM Date: 04/18/25 Loc: HO.HHCX Attending Dr: Usama Baca MD Ordering Physician: USAMA BACA MD Date of Service: 04/18/25 Procedure(s): XR knee RT 3V Accession Number(s): [id number] cc: USAMA BACA MD EXAMINATION: XR KNEE, RIGHT CLINICAL INFORMATION: several week h/o atraumatic anterior knee pain COMPARISON: None available. TECHNIQUE: Four views of the right knee. FINDINGS: Mild to moderate medial and mild lateral and patellofemoral compartment narrowing/osteoarthritis. Mild spurring of the tibial spines. No fracture or dislocation. No suspicious bone lesion. Mild enthesophyte pathic spurring of the superior and inferior patella. Mild chronic appearing fragmentation of the tibial tubercle, possible sequela of prior [place]-Schlatter disease. Mild prepatellar soft tissue swelling is present. There is a significant joint effusion present in the suprapatellar bursa. XR/XR knee RT 3V IMPRESSION: 1. No acute bony abnormalities. 2. Significant joint effusion in the suprapatellar bursa. Mild prepatellar soft tissue swelling, nonspecific. 3. Tricompartmental osteoarthrosis. Electronically signed by: Emiliano Baxter MD 04/18/2025 12:18 PM EDT [facility]station: [id number] Dictated By: Emiliano Baxter MD Signed By: <Electronically signed by Emiliano Baxter MD in OV> 04/18/25 1218 DD/ 1200 TD/TT: 04/18/25 1210 Reservoir Engineering Manager: Usama Baca MD IMG XR PROCEDURES Edited Result - Final * (ABNORMAL) HEMOGLOBIN A1c (01/21/2022 3:09 PM EDT) Pathologist [facility] Hemoglobin A1c 6.0(H) <5.7 % of total Hgb [facility] Comment: For someone without known diabetes, a hemoglobin ?? A1c value between 5.7% and 6.4% is consistent with prediabetes and should be confirmed with a ?? follow-up test. ?? For someone with known diabetes, a value <7% indicates that their diabetes is well controlled. A1c targets should be individualized based on duration of diabetes, age, comorbid conditions, and other considerations. ?? This assay result is consistent with an increased risk of diabetes. ?? Currently, no consensus exists regarding use of hemoglobin A1c for diagnosis of diabetes for children. ?? 01/21/2022 3:09 PM EDT Rea Hanna NP LAB BLOOD ORDERABLES Final Resu lt [facility] [address] * (ABNORMAL) LIPID PANEL, STANDARD (01/21/2022 3:09 PM EDT) Chol/HDLC Ratio 3.0 <5.0 (calc) [facility] Cholesterol, Total 142 <200 mg/dL [facility] HDL Cholesterol 47 > OR = 40 mg/dL [facility] LDL Cholesterol 68 mg/dL (calc) [facility] Comment: Reference range: <100 ?? Desirable range <100 mg/dL for primary prevention; ?? <70 mg/dL for patients with CHD or diabetic patients ?? with > or = 2 CHD risk factors. ?? LDL-C is now calculated using the Sunday-Enriquez ?? calculation, which is a validated novel method providing ?? better accuracy than the Friedewald equation in the ?? estimation of LDL-C. ?? Sunday SS et al. NUNU. 2013;310(19): 5003-0366 ?? (http://education.QuantHouse/faq/NRP399) Non-HDL Cholesterol 95 <130 mg/dL (calc) [facility] Comment: For patients with diabetes plus 1 major ASCVD risk ?? factor, treating to a non-HDL-C goal of <100 mg/dL ?? (LDL-C of <70 mg/dL) is considered a therapeutic ?? option. Triglycerides 204(H) <150 mg/dL [facility] Comment: ?? If a non-fasting specimen was collected, consider repeat triglyceride testing on a fasting specimen if clinically indicated. ?? Bernadine et al. J. of Clin. Lipidol. 2015;9:129-169. ?? 01/21/2022 3:09 PM EDT Rea Hanna NP LAB BLOOD ORDERABLES Final Resu lt [facility] [address] * Hm Colonoscopy (11/30/2020 1:31 PM EST) Historical Provider HEALTH MAINTENANCE Final Result from Last 3 Months or Most Recently Relevant to Health Maintenance Insurance [address] [place] [id number] [facility] [employer] (HMO D-SNP) MIRIAM HORN [id number] Care Teams Formwork Carpenter Relationship Specialty Start Date End Date Enma Zuñiga MD [address] [place] [address] PCP - General Internal Medicine 07/23/23
== END 2025-04-18 11:45 | disposition home or self-care (01) ==
LOC: HO.HHCX 11:44
PROVIDERS: Visit Provider Emergency Medicine
DX: M25.561 Pain in right knee (principal)
CPT/HCPCS: 73562

== ENCOUNTER → 2025-04-18 11:45 | Outpatient (BNV) | payer OTHER, SELFPAY | PROVIDERS: Visit Provider Radiology Diagnostic Radiology | DX: M17.11 Unilateral primary osteoarthritis, right knee (principal) | CPT/HCPCS: 73562 ==

== ENCOUNTER 2025-04-18 12:01 | Outpatient (REF) | payer OTHER, SELFPAY ==
[2025-04-18 13:11] LABS: Hematocrit 39.6 % (42.0-52.0); Mean Corpuscular HGB Conc 32.8 g/dl (31.0-36.0); Mean Corpuscular Hemoglobin 30.2 pg (27.0-33.0); Mean Corpuscular Volume 91.9 fL (80.0-98.0); Mean Platelet Volume 9.6 fL (9.4-12.4); Platelet Count 377 X10*3/uL (160-400); Red Blood Count 4.31 X10*6/uL (4.60-5.80); Red Cell Distribution Width 13.9 % (11.0-16.0); White Blood Count 7.6 X10*3/uL (4.8-10.8)
[2025-04-18 13:43] LABS: Alanine Aminotransferase 40 U/L (0-40); Albumin Level 4.7 g/dL (3.5-5.0); Alkaline Phosphatase 102 U/L (39-117); Anion Gap 9 (12-20); Aspartate Amino Transferase 34 U/L (5-37); Bilirubin Total 0.3 mg/dL (0.0-1.0); Blood Urea Nitrogen 17 mg/dL (9-16); Calcium 9.6 mg/dL (8.4-10.2); Carbon Dioxide 33 mmol/L (22-29); Chloride 104 mmol/L (96-108); Cholesterol 178 mg/dL (<200); Estimated Average Glucose 137 mg/dL; Estimated Glomerular Filt Rate > 60; Glucose Random 105 mg/dL (60-115); HDL Cholesterol 41 mg/dL (>40); Hemoglobin A1c % 6.4 % (<6.0); Iron 84 mcg/dL (45-160); LDL Cholesterol Calculated 80 mg/dL (<100); Percent Iron Saturation 26 % (15-50); Potassium 4.3 mmol/L (3.3-5.1); Sodium 142 mmol/L (135-145); Total Hemoglobin (HGBA1C) 3452.2777 umol/L; Total Iron Binding Capacity 328 mcg/dL (228-428); Total Protein 8.3 g/dL (6.5-8.0); Triglycerides 286 mg/dL (<150); Unsaturated Iron Binding 244 ug/dL
[2025-04-18 14:00] LABS: Ferritin 101 ng/mL (20-250); TSH reflex Free T4 1.57 uIU/mL (0.32-4.0)
[2025-04-18 14:05] LABS: Uric Acid 6.1 mg/dL (3.4-7.0)
[2025-04-18 14:10] LABS: HBc Num1 0.12 S/CO (0.00-0.79); HBsAGNum1 0.38 S/CO (0.00-0.99); HIV AB/AG Nonreactive (Nonreactive); HIV Num 1 0.08 S/CO (0.00-0.99); Hepatitis B Core Antibody Nonreactive (Nonreactive); Hepatitis B Surface Antigen Negative (Negative); ~Hepatitis B Surface Antibody NONREACTIVE (Nonreactive); ~Hepatitis C Antibody Nonreactive (Nonreactive)
[2025-04-18 14:11] LABS: Folate 12.2 ng/mL (> or = 4.0); Vitamin B12 853 pg/mL (200-900)
[2025-04-18 14:12] LABS: Creatinine Urine 241.16 mg/dL
[2025-04-18 14:13] LABS: Syphilis Screen Nonreactive (Nonreactive)
[2025-04-18 16:24] LABS: CT PCR NOT DETECTED (Not Detect.); NG PCR NOT DETECTED (Not Detect.)
[2025-04-20 01:58] LABS: Lyme Abs Screen <0.90 index
== END 2025-04-18 12:02 | disposition home or self-care (01) ==
LOC: HO.HHCL 12:01
PROVIDERS: Student in an Organized Health Care Education/Training Program; Visit Provider Emergency Medicine
DX: Z00.00 Encounter for general adult medical examination without abnormal findings (principal); M25.561 Pain in right knee; D50.9 Iron deficiency anemia, unspecified
CPT/HCPCS: 36415; 73562; 80053; 80061; 82043; 82306; 82570; 82607; 82728; 82746; 83036; 83540; 84443; 84550; 85027; 86617; 86618; 86704; 86706; 86780; 86803; 87340; 87389; 87491; 87591

== ENCOUNTER 2025-05-04 09:55 | Outpatient (AMB) | payer OTHER, SELFPAY ==
--- NOTE | 2025-05-04 09:55 | MHC.OFFVIS ---
Intake Visit Reasons: 6m follow up Intake Note: Patient is Present for 6 mo Follow Up Penile Prothesis Urology Medication: tadalafil Antibiotic Allergies: None Blood Thinners: Aspirin Chief Of Internal Medicine Required: No Accompanied by: Self / Same As Patient Allergies simvastatin Allergy (Mild, Verified 05/04/25 09:58) elevated CPK HPI Comments Details: Zane is a pleasant male. He is a patient of Dr. Hanna. He has seen for the following urologic conditions - erectile dysfunction - Peyronie's disease Six-month follow-up penile prosthetic placement No problems Working well Minimal issues with urination 1 year follow-up Peyronie's disease with erectile dysfunction Longstanding Right ventral plaque on exam Failed daily Cialis 07/03 penile pump placement with remodeling - Coloplast Titan [facility] Medical History CAD (coronary artery disease) Pre-diabetes TIA (transient ischemic attack) Asthma Colon cancer screening Hyperlipidemia Surgical History History of prostate surgery History of colonoscopy (~2008) History of ankle surgery (2008) History of cholecystectomy (1997) Family History Mother History of diabetes mellitus Brother History of diabetes mellitus Father History of myocardial infarction Social History Are you a primary primary care sales representative to a significant other at home: No Do you presently have visiting nurse or other home services: No Alcohol intake: current Alcohol intake frequency: holidays/special occasions only Alcohol type: beer Patient Tobacco Use Status: Never used Tobacco Second Hand Smoke Exposure: No Substance Use Type: IV Drugs Review of Systems Const Denies chills and Denies fever(s) Card Reports no additional complaints and Denies syncope Resp Denies cough GI Denies abdominal pain and Denies heartburn Reports as per HPI and Denies change in libido Neuro Denies syncope Psych Denies change in libido Endo Denies change in libido Physical Exam Const General: cooperative, healthy appearing, comfortable and no acute distress Orientation/consciousness: patient oriented x3 HEENT Face and sinus: Yes normal facial exam Mouth: moist mucous membranes Neck Neck: Yes normal visual inspection, Yes full ROM and Yes trachea midline Chest Chest palpation & inspection: normal inspection of the chest Resp Effort & Inspection: normal respiratory effort, able to speak in complete sentences and no respiratory distress GI Inspection: Yes normal to inspection Back/Spine/Pelvis Cervical Spine: normal cervical lordosis Thoracic/Lumbar Spine: thoracic and lumbar spine normal to inspection Skin General skin exam: no rashes or lesions noted Neuro General: patient oriented x3, gait normal, tone normal and moves all extremities Extrem General: Yes normal to inspection and Yes capillary refill normal Assessment & Plan Assessment & Plan (1) Peyronie's disease: Code(s): N48.6 - Induration penis plastica Category: Medical (2) Erectile dysfunction: Code(s): N52.9 - Male erectile dysfunction, unspecified Category: Medical Plan One year follow-up Patient Instructions: This note is constructed using voice recognition software. While every effort has been made to ensure accuracy sales consultant residential manager errors may have been included. Imaging studies, laboratory and physical exam results were discussed and reviewed in detail. No major barriers to patient understanding were identified. An opportunity to ask questions regarding the treatment plan was provided. All questions were answered. The patient expressed understanding and agreement with the above treatment plan. The patient is aware they should contact our office by phone for worsening of their current condition or the appearance of new urologic symptoms. Compliance is encouraged with any medications and followup testing that is ordered. It is a privilege to participate in the urologic care of your patient. If you have any questions or concerns regarding treatment for the above conditions, or other urologic issues, please do not hesitate to contact me. The office telephone contact is [phone]. Sincerely, Dr Bc Mccollum MD, [facility] - Urology Compassionate Specialist Care for the Genitourinary System Coding Level of Care Code Est Pt Level 3 (98138) Diagnoses Peyronie's disease N48.6 Erectile dysfunction N52.9
== END 2025-05-04 10:16 | disposition home or self-care (01) ==
LOC: HO.HUSH 09:56
PROVIDERS: PCP Nurse Practitioner; Visit Provider Urology
DX: N48.6 Induration penis plastica (principal); N52.9 Male erectile dysfunction, unspecified; Z13.9 Encounter for screening, unspecified
CPT/HCPCS: 99213

== ENCOUNTER → 2025-05-04 09:55 | Outpatient (BNVA) | payer OTHER, SELFPAY | PROVIDERS: PCP Nurse Practitioner; Visit Provider Urology | DX: N48.6 Induration penis plastica (principal); N52.9 Male erectile dysfunction, unspecified | CPT/HCPCS: 81003; 99212 ==

== ENCOUNTER 2025-07-20 09:08 | Outpatient (REF) | payer OTHER, SELFPAY ==
--- OUTSIDE RECORDS SUMMARY | 2025-07-14 09:30 | XMS_ITS | Encounter Summary ---
Author Organization [employer] Address [address] [place] [address] [address] [place] [address] Care Team Providers Care Classification Control Clerk Name Role Phone Enma Zuñiga MD Primary Care Pro vider Encounter Details Date Type Department Care Team ([facility] st Contact Info) Description 07/14/2025 9:30 AM EDT Office Visit [facility] MEDICINE [address] [place] [address] Enma Zuñiga MD [address] [place], [place] [phone] Dyslipidemia (Primary Dx); Essential hypertension; Health care maintenance Social History Tobacco Use Types Packs/Day Years Used Date Smoking Tobacco: Former Cigarettes Passive Smoke Exposure: Past Smokeless Tobacco: Never Tobacco Cessation:Counseling Given: Not Answered Comments:Used to smoke tobacco at 12 years of age until 41 [...] Sign Reading Time Taken Comments Blood Pressure 118/70 07/14/2025 9:39 AM EDT Pulse 79 07/14/2025 9:39 AM EDT Temperature 36.5 C (97.7 F) 07/14/2025 9:39 AM EDT Respiratory Rate 20 07/14/2025 9:39 AM EDT Oxygen Saturation 98% 07/14/2025 9:39 AM EDT Inhaled Oxygen Concentration - - Weight 85.3 kg (188 lb) 07/14/2025 9:39 AM EDT Height 160 cm (5' 3 ) 07/14/2025 9:39 AM EDT Body Mass Index 33.3 07/14/2025 9:39 AM EDT documented in this encounter Progress Notes * Enma Garcia MD - 07/14/2025 9:30 AM EDT Subjective Patient ID: Zane Denise is a 65 y.o. male who presents for f up ap HPI 65-year-old M from [place] the [place] for more than [place] years with past medical history of Asthma, hypertension, prediabetes, depression, hyperlipidemia, history of CAD status post stent,Peyronie's Dx/ED Comes for F up apt Not done labs yet ordered at last apt Denies new complaints --- Assessment and Plan: Health care maintenance -Annual exam done 02/2025 -PSA reports done in the last year with his urologist told to be normal -refuse repeating test -colonoscopy: 2020 diverticulosis and internal and external hemorrhoids- recommended for colonoscopyin 10 years -s/p Vaccines hepatitis A x1, pneumococcal 23 x 2 ,COVID 19 last booster 02/2025 , Tdap 2021 . P20 02/2025,Hep B not immune -refuse vaccine , Advised patient to get RSV vaccine at pharmacy and prescribed Shingrix vaccine to his pharmacy to start series. -advised for COVID 19 and Flu vaccine in 07/2025 ---- -not done yet Hb1AC, Chem and CBC ordered at last apt-advised to get labs done Hypertension -Controlled -ophthalmology 04/2025 -04/18/2025 Microalb neg -Takes amlodipine 10 mg daily and metoprolol 50 mg daily PreDM -04/18/2025 hb1AC 6.4 -zepbound px today as in below message -if not cover pt agreed to try metformin 500 mg ER daily ----PA done on 07/12/2025 -pd to get response -pt will check w pharmacy in 1 week, if not approved will inform us so I can order metformin -repeat hb1AC ,chem in 2 mo -reorder today Obesity BMI 33.9 -Advised pt to improve diet and exercise,discussed healthy life style -Working on a stationary walker at home - category planner-referred but refuse now -denies symptoms of CHRISTIANE -Pt is interested in trying inj --Pt denies any personal or family Hx of thyroid cancer ,repost 30 y ago Hx of pancreatitis but secondary to alcohol abuse-no longer drinking alcohol so dont see a contraindication . Pxed Tirzepatide - Zepbound 2.5 mg inj weekly ,explained possible SE.Contraindicationto phentermine: coronary artery disease. Pt also close to DM w Hb1AC 6.5 so will benefit from medication for both conditions. ------PA done on 07/12/2025 -pd to get response -pt will check w pharmacy in 1 weeks , if not approved will inform us so I can order metformin Asthma Well-controlled using albuterol nearly twice a month -Advair 2 puffs twice a day using consistently HLD CAD status post stent -04/18/2025 Trig 286, total ch 178, LDL 80, HDL 41. 2021 coronary angiography reported severe distal left circumflex stenosis and 70% calcified mid LADlesion status post drug-eluting stent of distal LCx coronary artery. --saw desktop technician-Dr Martin 06/2025 to f in 6 mo ,there is no mention in note of dual antiplatelet meds but pt states he asked and was told to continue both -repeat chem and fasting lipid Insomnia Taking zaleplon prescribed by psychiatrist Depression PHQ-9 0 RYLEY 0 Taking venlafaxine 150 mg daily and Klonopin 0.5 mg PRN , and quetiapine 50 mg at bedtime prescribed by psychiatrist Yevgeniy's Dx/ED -f w urologist Right knee pain -04/18/2025 uric acid wnl and Lyme test neg -right knee XR 04/2025 : No acute bony abnormalities. Significant joint effusion in the suprapatellar bursa. Mild prepatellar soft tissue swelling, nonspecific. Tricompartmental osteoarthrosis. -Referred to orthopedic surgeon ---has apt 07/20/2025 -tylenol PRN -diclofenac topical Anemia -04/18/2025 hb 13<--11.8 , iron panel is wnl, vit B12 and folic acid wnl Denies GI bleed -will repeat CBC in 2 mo to monitor-reorder today LE edema likely from venous insufficiency Reports having LE edema for the past 2 months ,swelling is below his knees , bl , wakes up with no swelling but noted during the day and worse at night ,denies erythema nor increase skin temp in legs,Denies orthopnea, nor SOB .Dain in eval w his desktop technician for this . Had recently vascular studyshowing venous insuf. Pt not yet using compression stockings prescribed by his desktop technician. Philomena was not able to obtain . Pt does take amlodipine chronically . 04/2025 Neg for microalb,chem wnl, mild anemia -venous insuf US 02/2025 Left CFV incompetence Noted 2 + pitting edema Right more than left leg, no concerning findings for DVT -px compression stockings 20-30 mmHg-requested today to [place] --explained pt that if not covered by insurance will advise to get out of pocket -If no better w socks will need to consider vascular referral --not able to obtained ,advised pt toget if ongoing swelling but currently none seen -----gave today in case needed compression stockings 15 to 20 mmHg -advised to raise legs -seems less likely amlodipine causing this but will keep as possibility and may need to consider change med BP 118/70 (BP Location: Left arm, Patient Position: Sitting, BP Cuff Size: Adult) Pulse 79 Temp97.7 ??F (36.5 ??C) (Temporal) Resp 20 Ht 5' 3 (1.6 m) Wt 188 lb (85.3 kg) SpO2 98% BMI 33.30 kg/m?? Review of Systems Constitutional: Negative. Respiratory: Negative. Cardiovascular: Negative. Physical Exam Constitutional: General: He is not in acute distress. Appearance: Normal appearance. He is obese. Neurological: Mental Status: He is alert. Assessment/Plan Problem List Items Addressed This Visit Dyslipidemia - Primary Relevant Orders CBC auto differential Hemoglobin A1c Lipid Panel, Standard Comprehensive Metabolic Panel Essential hypertension Health care maintenance documented in this encounter Plan of Treatment Scheduled Orders Name Type Priority Associated Diagnoses Orde r Schedule CBC auto differential Lab Routine Dyslipidemia Expected: 07/14/2025 (Approximate), Expires: 07/14/2026 Hemoglobin A1c Lab Routine Dyslipidemia Expected: 07/14/2025 (Approximate), Expires: 07/14/2026 Lipid Panel, Standard Lab Routine Dyslipidemia Expected: 07/14/2025 (Approximate), Expires: 07/14/2026 Comprehensive Metabolic Panel Lab Routine Dyslipidemia Expected: 07/14/2025 (Approximate), Expires: 07/14/2026 documented as of this encounter Visit Diagnoses Diagnosis Dyslipidemia- Primary Other and unspecified hyperlipidemia Essential hypertension Unspecified essential hypertension Health care maintenance documented in this encounter Additional Health Concerns Assessment Noted Time PHQ-9 Depression Total Score: 0 02/17/20 25 9:26 AM EDT documented as of this encounter Care Teams Classification Control Clerk Relationship Specialty Start Date End Date Enma Zuñiga MD [address] [place] [id number] PCP - General Internal Medicine 07/23/23 documented as of this encounter
--- NOTE | ~2025-07-20 | XR_ITS ---
EXAMINATION: XR KNEE 3 VIEWS RIGHT HISTORY: M17.11 - Unilateral primary osteoarthritis, right knee COMPARISON: Comparison is made with the prior examination dated 04/18/2025. FINDINGS: Standing AP views of both knees and additional lateral and sunrise patellar views of the right knee are submitted. Osseous mineralization is normal. There is no fracture or dislocation. There is moderate narrowing of the medial compartment and mild narrowing of the patellofemoral compartment. The soft tissues are unremarkable. There is no joint effusion. XR/XR knee RT 3V IMPRESSION: Degenerative changes of the right knee as described. Electronically signed by: Martinez Castorena MD 07/20/2025 01:18 PM EDT
--- OUTSIDE RECORDS SUMMARY | 2025-07-20 10:48 | XMS_ITS | Encounter Summary ---
Author Organization [employer] Address [address] [facility] [address] [place] [address] Care Team Providers Care Manager Skilled Name Role Phone Enma Zuñiga MD Primary Care Pro vider Encounter Details Date Type Department Care Team ([facility] st Contact Info) Description 02/09/2025 Orders Only [facility] MED & PEDS [address] [place], [place] [phone] Provider, MD Cherie Social History Tobacco Use Types Packs/Day Years [...] your housing situation today? I have shailesh sing 11/16/[address] you li [...] t he electric, gas, oil or water [employer] threatened to shut off services in your home? No 11/16/2024 Depression Answer Date Recorded Patient Health Questionnaire-2 Score 0 11/16/2024 Internet Access Answer Date Recorded Internet Access Q1 Yes 02/04/2025 Internet Access Q2 Not on file 02/04/2025 Sex and Gender Information Value Date Recorded Sex Assigned at Male 09/09/2022 10:14 AM EDT Legal Sex Male 10:14 AM EDT Gender Identity Male 09/09/2022 10:14 AM EDT Sexual Orientation Straight 09/09/2022 10 :14 AM EDT documented as of this encounter Plan of Treatment Not on file documented as of this encounter Procedures Procedure Name Priority Date/Time Associated Diagnosis Comments HM COLONOSCOPY Routine 11/30/2020 1:31 PM EST documented in this encounter Results * Hm Colonoscopy (11/30/2020 1:31 PM EST) us Historical Provider HEALTH MAINTENANCE Final Result documented in this encounter Visit Diagnoses Not on filedocumented in this encounter Additional Health Concerns Assessment Noted Time PHQ-9 Depression Total Score: 0 11/16/19 25 1:25 PM EST documented as of this encounter Care Teams Manager Skilled Relationship Specialty Start Date End Date Enma Zuñiga MD [address] [place] [id number] PCP - General Internal Medicine 07/23/23 documented as of this encounter
--- OUTSIDE RECORDS SUMMARY | 2025-07-20 10:48 | XMS_ITS | Encounter Summary ---
Author Organization [employer] Address [address] [place] [address] [address] [place] [address] Care Team Providers Care Ham Marker Name Role Phone Enma Zuñiga MD Primary Care Pro vider Reason for Visit * Reason Onset Date Comments Appointment Request 08/30/2024 Encounter Details Date Type Department Care Team ([facility] st Contact Info) Description 08/30/2024 Telephone [facility] MEDICINE [address] [place] [address] Enma Zuñiga MD [address] [place], [place] [phone] Appointment Request Social History Tobacco Use Types [...] documented in this encounter Plan of Treatment Not on file documented as of this encounter Visit Diagnoses Not on filedocumented in this encounter Care Teams Ham Marker Relationship Specialty Start Date End Date Enma Zuñiga MD [address] [place] [address] PCP - General Internal Medicine 07/23/23 documented as of this encounter
--- OUTSIDE RECORDS SUMMARY | 2025-07-20 10:48 | XMS_ITS | Encounter Summary ---
Author Organization [employer] Address [address] [place] [address] [address] [place] [address] Care Team Providers Care Staff Development Nurse Name Role Phone Enma Zuñiga MD Primary Care Pro vider Reason for Visit * Reason Comments Med Refill Encounter Details Date Type Department Care Team (Late st Contact Info) Description 03/29/2024 Refill [facility] MEDICINE [address] [place], [place] [phone] Enma Zuñiga MD [address] [place], [place] [phone] Social History Tobacco Use Types Packs/Day Years [...] on filedocumented in this encounter Care Teams Staff Development Nurse Relationship Specialty Start Date End Date Enma Zuñiga MD [address] [place], [place] [phone] PCP - General Internal Medicine 07/23/23 documented as of this encounter
--- OUTSIDE RECORDS SUMMARY | 2025-07-20 10:48 | XMS_ITS | Encounter Summary ---
Author Organization [employer] Address [address] [place] [address] [address] [place] [address] Care Team Providers Care Customer Support Consultant Name Role Phone Enma Zuñiga MD Primary Care Pro vider Reason for Visit * Reason Comments Med Refill Encounter Details Date Type Department Care Team (Late st Contact Info) Description 08/05/2023 Refill [facility] MEDICINE [address] [place], [place] [phone] [facility] [address] [place], [place] [phone] Social History Tobacco Use Types Packs/Day Years [...] on filedocumented in this encounter Care Teams Customer Support Consultant Relationship Specialty Start Date End Date Enma Zuñiga MD [address] [place] [address] PCP - General Internal Medicine 07/23/23 documented as of this encounter
--- OUTSIDE RECORDS SUMMARY | 2025-07-20 10:48 | XMS_ITS | Encounter Summary ---
Author Organization [employer] Address [address] [place] [address] [address] [place] [address] Care Team Providers Care Research Geneticist Name Role Phone Enma Zuñiga MD Primary Care Pro vider Reason for Visit * Reason Comments Med Refill Encounter Details Date Type Department Care Team (Late st Contact Info) Description 04/08/2024 Refill [facility] MEDICINE [address] [place], [place] [phone] Enma Zuñiga MD [address] [place], [place] [phone] Social History Tobacco Use Types Packs/Day Years [...] on filedocumented in this encounter Care Teams Research Geneticist Relationship Specialty Start Date End Date Enma Zuñiga MD [address] [place], [place] [phone] PCP - General Internal Medicine 07/23/23 documented as of this encounter
--- OUTSIDE RECORDS SUMMARY | 2025-07-20 10:48 | XMS_ITS | Encounter Summary ---
Author Organization [employer] Address [address] [place] [address] [address] [place] [address] Care Team Providers Care Burner Shaft Name Role Phone Enma Zuñiga MD Primary Care Pro vider Reason for Visit * Reason Comments Med Refill Encounter Details Date Type Department Care Team (Late st Contact Info) Description 06/09/2024 Refill [facility] MEDICINE [address] [place], [place] [phone] Enma Zuñiga MD [address] [place], [place] [phone] Wheezing Social History Tobacco Use Types Packs/Day [...] Wheezing documented in this encounter Care Teams Burner Shaft Relationship Specialty Start Date End Date Enma Zuñiga MD [address] [place], [place] [phone] PCP - General Internal Medicine 07/23/23 documented as of this encounter
--- OUTSIDE RECORDS SUMMARY | 2025-07-20 10:48 | XMS_ITS | Encounter Summary ---
Author Organization [employer] Address [address] [place] [address] [address] [place] [address] Care Team Providers Care Nurse First Assist Name Role Phone Enma Zuñiga MD Primary Care Pro vider Reason for Visit * Reason Comments Med Refill Encounter Details Date Type Department Care Team (Late st Contact Info) Description 05/11/2025 Refill [facility] MEDICINE [address] [place], [place] [phone] Enma Zuñiga MD [address] [place], [place] [phone] Moderate persistent asthma, unspecified whether complicated Social History Tobacco Use Types Packs/Day Years Used Date Smoking Tobacco: Former Cigarettes Passive Smoke Exposure: Past Smokeless Tobacco: Never Comments:Used to smoke tobac [...] as of this encounter Visit Diagnoses Diagnosis Moderate persistent asthma, unspecified whether complicated documented in this encounter Additional Health Concerns Assessment Noted Time PHQ-9 Depression Total Score: 0 02/17/20 25 9:26 AM EDT documented as of this encounter Care Teams Nurse First Assist Relationship Specialty Start Date End Date Enma Zuñiga MD [address] [place] [id number] PCP - General Internal Medicine 07/23/23 documented as of this encounter
--- OUTSIDE RECORDS SUMMARY | 2025-07-20 10:48 | XMS_ITS | Clinical Summary ---
Author Organization [employer] Address [address] [facility] [address] [place] [address] Care Team Providers Care Candle Molder Machine Name Role Phone Enma Zuñiga MD Primary Care Pro vider Allergies Active Allergy Reactions Criticality Noted Date Comments Simvastatin 03/21/2011 Other reaction(s): elev CPK Medications clopidogrel (Plavix) 75 MG tablet Take by mouth in the morning. Active zaleplon (Sonata) 10 MG capsule 09/14/20 24 Active venlafaxine XR (Effexor XR) 150 MG 24 hr capsule 09/14/20 24 Active metoprolol succinate XL (Toprol-XL) 50 MG 24 hr tablet 09/14/20 24 Active clonazePAM (KlonoPIN) 0.5 MG tablet 09/14/20 24 Active fluticasone-salme terol (Advair) 45-21 MCG/ACT inhalerIndication s:Moderate persistent asthma, unspecified whether complicated Inhale 2 puffs in the morning and at bedtime. Rinse mouth with water after use to reduce aftertaste and incidence of candidiasis. Do not swallow. 12 g 12/04/19 25 026 Active albuterol (Ventolin HFA) 108 (90 Base) MCG/ACT inhalerIndication s:Moderate persistent asthma, unspecified whether complicated INHALE 2 PUFFS BY MOUTH EVERY 4-6 HOURS NEEDED 18 g 12/04/19 25 Active QUEtiapine (SEROquel) 50 MG tablet Take 50 mg by mouth at bedtime. 02/09/20 25 Active omega-3 acid ethyl esters (Lovaza) 1 g capsule Take 1 g by mouth Once per day. Active magnesium citrate solution Take by mouth. Activ e D3 Super Strength 50 MCG (2000 UT) capsule TAKE 1 CAPSULE BY MOUTH DAILY 30 capsule 2 06/09/20 25 Active loratadine (Claritin) 10 MG tablet TAKE 1 TABLET BY MOUTH DAILY NEEDED 30 tablet 2 06/09/20 25 Active sennosides (Senna-Time) 8.6 MG tablet TAKE 1 TO 2 TABLETS BY MOUTH EVERY NIGHT AT BEDTIME FOR CONSTIPATION 60 tablet 2 06/09/20 25 Active Aspirin Low Dose 81 MG EC tabletIndications :Pain TAKE 1 TABLET BY MOUTH DAILY 30 tablet 2 06/09/20 25 Active cyanocobalamin (Vitamin B-12) 1000 MCG tablet TAKE 1 TABLET BY MOUTH DAILY 30 tablet 2 06/09/20 25 Active amLODIPine (Norvasc) 10 MG tablet TAKE 1 TABLET BY MOUTH DAILY 30 tablet 2 06/09/20 25 Active atorvastatin (Lipitor) 80 MG tablet TAKE 1 TABLET BY MOUTH AT BEDTIME 30 tablet 2 06/09/20 25 Active Diclofenac Sodium 1 % gelIndications:Pr imary osteoarthritis of right knee,Acute pain of right knee Apply 1 Application topically every 12 (twelve) hours if needed (apply on affected area). 150 g 1 06/29/20 25 Active acetaminophen (Tylenol Extra Strength) 500 MG tabletIndications :Primary osteoarthritis of right knee,Acute pain of right knee Take 2 tablets (1,000 mg) by mouth every 6 (six) hours if needed for moderate pain for up to 10 days. 30 tablet 1 06/29/20 25 025 ibuprofen 600 MG tabletIndications :Primary osteoarthritis of right knee,Acute pain of right knee Take 1 tablet (600 mg) by mouth every 8 (eight) hours if needed for mild pain. 30 tablet 1 06/29/20 25 025 Discontinu ed(Other) Active Problems Problem Noted Date Diagnosed Date Primary osteoarthritis of right knee 06/29/2025 Acute pain of right knee 06/29/2025 Assessment & Plan (06/29/2025 7:56 PM EDT): I printed his appointment for orthopedics advised not to miss his appointment I prescribed for pain ibuprofen and acetaminophen to be taken as needed, I also prescribed diclofenac gel that can be applied twice daily as needed Advised to rest elevate the knee and apply ice Obesity (BMI 30-39.9) 04/22/2025 Lower extremity edema 04/22/2025 Anemia 04/22/2025 Peyronie disease 02/16/2025 Erectile disorder 02/16/2025 Insomnia [...] during the procedure. Moderate persistent asthma 12/21/2015 Resolved Problems Problem Noted Date Diagnosed [...] had LYSSA > 1 year ago . Master Certified Rv Technician recommended this back in 06/2024 when pt was about to undergo another procedure under general anesthesia. Patient has been advised to follow up after the procedure has been completed Encounters Date Type Department Care Team Description 07/14/2025 9:30 AM EDT Office Visit [facility] [address] [place] [phone] Enma Zuñiga MD Dyslipidemia (Primary Dx); Essential hypertension; Health care maintenance 07/14/2025 Travel 07/12/2025 Telephone [facility] [address] [place] [phone] Enma Zuñiga MD Prior Authorization 06/29/2025 7:00 PM EDT Office Visit [facility] [address] [place] [phone] Enma Fraire MD Primary osteoarthritis of right knee (Primary Dx); Acute pain of right knee 06/29/2025 Travel 06/21/2025 Telephone [facility] [address] [place] [phone] Enma Zuñiga MD 06/09/2025 Refill [facility] [address] [place], [place] [phone] Capri Mendoza MD Pain 06/09/2025 Refill [facility] [address] [place] [phone] Enma Zuñiga MD Moderate persistent asthma, unspecified whether complicated 06/06/2025 Telephone [facility] [address] [place] [phone] Enma Zuñiga MD Referral 05/11/2025 Refill [facility] [address] [place] [address] [phone] Enma Zuñiga MD Moderate persistent asthma, unspecified whether complicated 04/21/2025 2:15 PM EDT Office Visit [facility] [address] [place] [phone] Enma Zuñiga MD Obesity (BMI 30-39.9) (Primary Dx); Prediabetes; Dyslipidemia; Essential hypertension; Health care maintenance; Lower extremity edema; Anemia, unspecified type 04/21/[address] [phone] Enma Zuñiga MD Durable Medical Equipment 04/21/2025 Travel 04/20/2025 Orders Only [facility] [address] [place] [phone] Usama Dimas MD Right anterior knee pain (Primary Dx) 04/20/2025 Results Follow-Up [facility] [address] [place] [address] [phone] Usama Dimas MD Lyme Disease Ab with Reflex to Blot (IgG, IgM), Uric acid from Last 3 Months Immunizations Immunization Administration Dates Next Due Hep A, Adult 06/30/2019 Influenza injectable quadriv alent IIV4 with preservative 08/05/2017,08/08/2016,07/27/2015 Influenza injectable quadriv alent preservative free 07/25/2022,01/21/2022 Influenza, IIV3, injectable 07/25/2022,0 01/21/2022,08/05/2017,08/08,07/27/2015,07/22/2011,08/02/2010 Influenza, Split (incl. del fied surface antigen) 08/19/2013 Pfizer Covid-19 Vaccine 12+ 02/16/2025 Pneumococcal Conjugate PCV 20 02/16/2025 Pneumococcal Polysaccharide PPSV23 06/24/2014,,03/16/2009 TD (adult), 2 Lf tetanus tox oid, preservative free, adsorbed 08/10/2001 Td (adult), unspecified 08/10/2001 Tdap 01/21/2022,07/22/2011 Family History Medical History [...] Mass Index 33.3 07/14/2025 9:39 AM EDT Plan of Treatment Health Maintenance Due Date Last Done Comments CT Colonography 1959 FIT DNA/Cologuard 1959 FIT 1959 FOBT 1959 Sigmoidoscopy 1959 Zoster Vaccines (1 of 2) 2009 RSV Patients and Patients Aged 60 years or older (1 - Risk 60-74 years 1-dose series) 2019 Influenza Vaccine (#1) 2025 2, 07/25/2022, 01/21/2022, Additional history exists COVID-19 Vaccine ( season) 2025 02/16/2025, 12/11/2021, 02/13/2021, Additional history exists Diabetes: Hemoglobin A1C 10/18/2025 025, 01/21/2022, 06/30/2020 Alcohol/Substance Use Screening 11/16/2025 11/16/2024 SDOH Screening 02/04/2026 02/04/2025 Depression Screening 02/16/2026 02/16/2025, 02/17/20 25 Tobacco Screening 07/14/2026 07/14/2025 Lipid Panel 04/18/2030 04/18/2025, 01/08, 06/30/2020 Colonoscopy 11/30/2030 11/30/2020 Colorectal Cancer Screening 11/30/2030 DTaP/Tdap/Td Vaccines (3 - Td or Tdap) 01/22/2032 01/21/2022, 07/22/2011, 08/10/2001, Additional history exists Hepatitis A Vaccines Aged Out 06/30/2019 No long er eligible based on patient's age to complete this topic Pneumococcal Vaccine: 50+ Years Completed 02/16/2025, 06/24/2014, 06/08/2013, Additional history exists Hepatitis C Screening Completed 04/18/2025 HIB Vaccines Aged Out No longer eligi [...] Procedure Name Priority Date/Time Associated Diagnosis Comments HEPATITIS C AB W/REFL TO HCV RNA, QN, PCR Routine 04/18/2025 12:04 PM EDT Annual physical exam HEMOGLOBIN A1C Routine 04/18/2025 12:04 PM EDT Annual physical exam LIPID PANEL, STANDARD Routine 04/18/2025 12:04 PM EDT Annual physical exam HM COLONOSCOPY Routine 11/30/2020 1:31 PM EST from Last 3 Months or Most Recently Relevant to Health Maintenance Results * Hepatitis C Antibody with Reflex to HCV, RNA, Quantitative, Real-Time PCR (04/18/2025 12:04 PM EDT) Hepatitis C Antibody Nonreactive Nonreactive [facility] Comment:Antibodies to HCV no t detected; does not exclude early acuteHCV infection. Blood Venous blood specimen / Unknown 04/18/2025 12:04 PM EDT 04/18/2025 1:19 PM EDT Enma Garcia MD LAB BLOOD ORDERAB LES Final Result [facility] [address] [place] [phone] * (ABNORMAL) Hemoglobin A1c (04/18/2025 12:04 PM EDT) Hemoglobin A1c 6.4(H) <6.0 % [facility] Comment:Hemoglobin A1C Refer ence Range Adults: 4.8 - 6.0 % Non diabetic: < 6.0 % Goal: < 7.0 %Additional Action Suggested: > 8.0 %Note: Hemoglobin A1c results are invalid for patients with abnormal amounts of HbF. Blood transfusions may impact the HbA1c concentration in the patient sample. Estimated Average Glucose 137 mg/dL [facility] Comment:eAG = Estimated ave rage glucose which is %A1C expressed asaverage glucose, using the formula of the [id number]-[id number] Glucose study (ADAG), Diabetes Care, Vol.31,#8,Jun. 2007 Blood Venous blood specimen / Unknown 04/18/2025 12:04 PM EDT 04/18/2025 1:04 PM EDT us Enma Garcia MD LAB BLOOD ORDERAB LES Final Result Performing Organization Address City/[facility]/ZIP Co de Phone Number [facility] [address] [place] [phone] * (ABNORMAL) Lipid Panel, Standard (04/18/2025 12:04 PM EDT) Triglycerides 286(H) <150 mg/dL [facility] Comment:Desirable Triglyceri de: less than 150 mg/dLBorderline High Triglyceride 150-199 mg/dLHigh Triglyceride: 200-499 mg/dLVery High Triglyceride: greater than or equal to 5OO mg/dL Cholesterol 178 <200 mg/dL [facility] Comment:Desirable Cholestero l: less than 200 mg/dLBorderline High Cholesterol: 200-239 mg/dLHigh Cholesterol: greater than 239 mg/dL LDL Cholesterol Calculated 80 <100 mg/dL [facility] Comment:Desirable LDL: less than 100 mg/dLNear Optimal/Above Optimal LDL: 110- 129 mg/dLBorderline High LDL: 130-159 mg/dLHigh LDL: 160-189 mg/dLVery High LDL: greater than or equal to 190 mg/dL HDL Cholesterol 41 >40 mg/dL [facility] Comment:Desirable HDL: great er than 40 mg/dL Note: This HDL assay may give artificially low results in patients with liver disease. Blood Venous blood specimen / Unknown 04/18/2025 12:04 PM EDT 04/18/2025 1:19 PM EDT us Enma Garcia MD LAB BLOOD ORDERAB LES Final Result Performing Organization Address City/[facility]/ZIP Co de Phone Number [facility] [address] [place] [phone] * Hm Colonoscopy (11/30/2020 1:31 PM EST) us Historical Provider HEALTH MAINTENANCE Final Result from Last 3 Months or Most Recently Relevant to Health Maintenance Insurance [facility] [employer] (HMO D-SNP) MIRIAM HORN [id number] Care Teams Candle Molder Machine Relationship Specialty Start Date End Date Enma Zuñiga MD [address] [place] [phone] PCP - General Internal Medicine 07/23/23
--- OUTSIDE RECORDS SUMMARY | 2025-07-20 10:48 | XMS_ITS | Encounter Summary ---
Author Organization [employer] Address [address] [place] [address] [address] [place] [address] Care Team Providers Care Custom Shoe Designer And Maker Name Role Phone Enma Zuñiga MD Primary Care Pro vider Reason for Visit * Reason Comments Med Refill Encounter Details Date Type Department Care Team (Late st Contact Info) Description 01/21/2024 Refill [facility] [address], [place] [phone] Enma Zuñiga MD [address], [place] [phone] Social History Tobacco Use Types Packs/Day Years [...] on filedocumented in this encounter Care Teams Custom Shoe Designer And Maker Relationship Specialty Start Date End Date Enma Zuñiga MD [address], [place] [phone] PCP - General Internal Medicine 07/23/23 documented as of this encounter
--- OUTSIDE RECORDS SUMMARY | 2025-07-20 10:48 | XMS_ITS | Encounter Summary ---
Author Organization [employer] Address [address] [place] [address] [address] [place] [address] Care Team Providers Care Volleyball Coach Name Role Phone Enma Zuñiga MD Primary Care Pro vider Reason for Visit * Reason Comments Med Refill Encounter Details Date Type Department Care Team ([facility] st Contact Info) Description 06/09/2025 Refill [facility] [address] [place], [place] [phone] Enma Zuñiag MD [address] [place] [address] Moderate persistent asthma, unspecified whether complicated Social [...] documented as of this encounter Care Teams Volleyball Coach Relationship Specialty Start Date End Date Enma Zuñiga MD [address] [place] [phone] PCP - General Internal Medicine 07/23/23 documented as of this encounter
== END 2025-07-20 09:09 | disposition home or self-care (01) ==
LOC: HO.HOSX 09:08
DX: M17.11 Unilateral primary osteoarthritis, right knee (principal)
CPT/HCPCS: 73562; 99202

== ENCOUNTER 2025-07-20 12:48 | Outpatient (AMB) | payer OTHER, SELFPAY ==
[2025-07-20 13:06] VITALS: BMI 32.2
--- NOTE | 2025-07-20 13:06 | A.OFFVIS_ITS ---
Vital Signs 07/20/25 13:06 Height 5 ft 3 in Weight 182 lb BMI 32.2 Intake Visit Reasons: CONVEYOR ATTENDANT- Right anterior Knee Pain Intake Note: Zane is a 65 year old man who presents today as a New Patient for evaluation of Right Knee Pain primarily on the lateral aspect of the knee, occasionally radiating up the tigh and behind the knee. He states this started about 1.5 months ago. He does not recall any injuries to his right knee. He has been using a knee brace, takin Tylenol and Ibuprofen with some relief. Denies previous surgeries to the right knee. Allergies simvastatin Allergy (Mild, Verified 07/20/25 13:10) elevated CPK HPI HPI CONVEYOR ATTENDANT- Right anterior Knee Pain: Details: Zaen is a 65 year old man who presents today as a New Patient for evaluation of Right Knee Pain primarily on the lateral aspect of the knee, occasionally radiating up the tigh and behind the knee. He states this started about 1.5 months ago, however he has had multiple episodes of right knee pain in the past that have improved and returned with time. He does not recall any injuries to his right knee. He has been using a knee brace, takin Tylenol and Ibuprofen with some relief. Denies previous surgeries to the right knee. [facility] Medical History CAD (coronary artery disease) Pre-diabetes TIA (transient ischemic attack) Asthma Colon cancer screening Hyperlipidemia Surgical History History of prostate surgery History of colonoscopy (~2008) History of ankle surgery (2008) History of cholecystectomy (1997) Family History Mother History of diabetes mellitus Brother History of diabetes mellitus Father History of myocardial infarction Social History (Updated 07/20/25 @ 13:12 by JAMEE John) Are you a primary physician assistant primary care to a significant other at home: No Do you presently have visiting nurse or other home services: No Alcohol intake: former Year quit: 2022 Patient Tobacco Use Status: Former Tobacco user Second Hand Smoke Exposure: No Substance Use Type: IV Drugs Current occupational status: unemployed Current occupation: rt handed Review of Systems Const All systems reviewed & are unremarkable except as noted in HPI and below Physical Exam Vital Signs: BMI result Body Mass Index 32.2 Extrem Other: Patient's right knee normal to inspection No erythema, ecchymosis, edema noted No lacerations, abrasions, open areas No evidence of infection Patient reports no tenderness to palpation of the quad tendon, patellar tendon, medial or lateral joint lines, posterior knee, tibial tubercle, patella Patient is able to extend the right knee fully and flex to approximately 100 degrees without difficulty Negative Mell's Negative anterior drawer No pain or laxity with varus and valgus testing Very mildly positive patellar grind Negative apprehension test Distal sensation intact Capillary refill brisk Results Reviewed Results Reviewed: X-rays obtained in the office today and independently reviewed by me, Trip jin PA-C, demonstrate mild osteoarthritis of the tibiofemoral joint with moderate arthritis and patellar lateralization of the patello femoral joint. Assessment & Plan Assessment & Plan (1) Osteoarthritis of right knee: Code(s): M17.11 - Unilateral primary osteoarthritis, right knee Category: Medical Plan 1. 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 Patient is educated about this condition Patient is educated about the treatment options available At this time, patient is referred to physical therapy for range of motion, strengthening, stabilization of the right knee in the setting of lateralization of the right patella and patellofemoral osteoarthritis Patient is educated that if PT is ineffective for getting him pain relief, he can call our office for reassessment and discussion of other treatment options Patient understands this in his amenable to this plan Follow-up as needed Orders: Orders XR knee RT 3V Today M17.11 - Unilateral primary osteoarthritis, right knee PT Evaluation and Treatment Today M17.11 - Unilateral primary osteoarthritis, right knee Coding Level of Care Code New Pt Level 3 (40401) Diagnoses Osteoarthritis of right knee M17.11
== END 2025-07-20 13:31 | disposition home or self-care (01) ==
LOC: HO.HOS 12:49
PROVIDERS: PCP Nurse Practitioner
DX: M17.11 Unilateral primary osteoarthritis, right knee (principal)
CPT/HCPCS: 99203

== ENCOUNTER → 2025-07-20 12:56 | Outpatient (BNV) | payer OTHER, SELFPAY | PROVIDERS: Visit Provider Radiology Diagnostic Radiology | DX: M17.11 Unilateral primary osteoarthritis, right knee (principal) | CPT/HCPCS: 73562 ==